=== PATIENT | female | born 1940 | race Caucasian/White ===

== ENCOUNTER 2024-12-27 09:22 | Emergency (ER) | payer MEDICARE, MEDICAID, SELFPAY ==
--- NOTE | 2024-12-27 09:41 | XR_ITS ---
Examination: Knee, right , 3 views Technique: Knee AP, lateral, oblique 3 views Date and time of exam: December 27, 2024 0959 hours INDICATIONS: Onset knee tenderness today FINDINGS: Prominent osteopenia Advanced narrowing osteoarthritis medial patellofemoral joints No fracture Small knee effusion IMPRESSION: No fracture
--- NOTE | 2024-12-27 09:41 | EKG_ITS ---
[facility] Test Date: 2024-12-27 Pat Name: ELSY GARG Department: Room: - Gender: Female Skiff Operator: : 1940 Requested By: Stanley Zheng Order Number: [id number] Reading MD: Stanley Zheng Measurements Intervals [place] Rate: 99 P: 5 FL: 183 QRS: 137 QRSD: 105 T: -23 QT: 346 QTc: 445 Interpretive Statements SINUS RHYTHM LEFT ATRIAL ENLARGEMENT [-0.15mV P WAVE IN V1/V2] INCOMPLETE RIGHT BUNDLE BRANCH BLOCK [90+ ms QRS DURATION, TERMINAL R IN V1/V2, 40+ ms S IN I/aVL/V4/V5/V6] POSSIBLE ANTERIOR MYOCARDIAL INFARCTION , OF INDETERMINATE AGE [30 ms Q WAVE IN V3/V4, OR R < 0.2 mV IN V4] No previous ECG available for comparison /[id number]/[email or web address]/[id number].pdf
--- NOTE | 2024-12-27 09:42 | PD.EDRME ---
Rapid Medical Screening Exam RME Arrival date/time: 12/27/24 09:22 84-year-old female presents to the emergency room with a chief complaint of right-sided knee pain and bilateral lower extremity swelling x 2 weeks I have greeted and performed a focused initial assessment of this patient. A comprehensive ED assessment and evaluation of the patient, analysis of all test results, and completion of the medical decision making process will be conducted by additional ED providers. Chief Complaint: Extremity Problem,Nontraumatic Time Seen by Provider: 12/27/24 09:38 Vital signs reviewed by provider: Yes
[2024-12-27 09:44] VITALS: BP 150/80; PULSE 101; RESP 16; TEMP 36.7; O2SAT 100; BMI 33.7
[2024-12-27 10:37] VITALS: BP 173/88; PULSE 98; RESP 17; TEMP 36.6; O2SAT 97
[2024-12-27 10:40] VITALS: PULSE 101
--- NOTE | 2024-12-27 10:45 | PC.NURSE ---
provided ama paper to sign pt stated she didn't want to stay but wasn't sure if she stay, explained consequences of leaving she was able to verbalize that the paper was to allow her to leave against medical advice, she stated she did not know the visit would entail all of this and advised her again that is up to her if she wants to stay as we cant keep her here against her will she is free to leave. pt stated she is uncomfortable in the bed and wants to sit in chair. provided pt a wheelchair to sit bed side and pt stated she will wait to see what the results show.
--- NOTE | 2024-12-27 10:47 | EDNOTE_ITS ---
ED Extremity Problem RME/HPI General Chief complaint: Extremity Problem,Nontraumatic Stated complaint: RIGHT KNEE/THIGH PAIN WITH BILAT FEET SWOLL X 2W Time Seen by Provider: 12/27/24 09:38 Arrival date/time: 12/27/24 09:22 RME / HPI RME / HPI Narrative: 12/27/24 09:22 84-year-old female presents to the emergency room with a chief complaint of right-sided knee pain and bilateral lower extremity swelling x 2 weeks I have greeted and performed a focused initial assessment of this patient. A comprehensive ED assessment and evaluation of the patient, analysis of all test results, and completion of the medical decision making process will be conducted by additional ED providers. This section includes all my notes and documentations, including HPI, PE, and ED course.? Guy Negrete MD HPI: 84 year old female presents to the ED for evaluation of right leg pain today. Reports pain to the right leg is located mostly in the knee, beginning intermittently 3 weeks ago. Described as aching and rated as moderate in sensation. Accompanied by difficulty standing and walking secondary to pain. Per [id number], the patient at baseline is able to get around with her walker without problems. Denies any trauma or injuries. Denies any history of similar pain, fevers, chest pain, cough, shortness of breath, or foot pain. No other complaints. ROS: All negative except as documented in HPI. Physical Exam: General:? Alert and oriented.? No acute distress when remaining still.?? Eyes:? Conjunctivae and lids clear.? ENT:? No nasal congestion.? Neck:? Supple.? Heart:? RRR.? Lungs:? No respiratory distress.? Good air movement.? No rhonchi, wheezing, rales.?? Abdomen:? Soft and nontender.?? Legs:? No clubbing, cyanosis, edema.? Skin:? Warm and dry.?? Neuro:? Alert and oriented X 3.?? Musculoskeletal: All major joints and bones are not tender with no limited range of motion. I reviewed all diagnostic test results. My interpretation of the EKG is?Sinus rhythm (99 bpm) with nonspecific ST-T changes. My interpretation of the knee x-ray is no fracture. Blood tests and urine tests?unremarkable except UTI. At this point, diagnoses include?right leg pain, UTI. Treatment here included?Macrobid and two Tylenol #3. Significant improvement noted. Recommended more diagnostic tests, including right leg ultrasound to rule out DVT. Patient declined. Requested going home. Doesn't want to wait longer. Discussed potential risks, including sudden . We still couldn't change her mind. Based on my best medical judgment, made decision no further evaluation or treatment indicated at this time.? Patient understands and agrees to the discharge instructions customized and printed, see below. Discharge Instructions from Dr. Negrete printed for you: 1. After evaluation, you are diagnosed with UTI. But the cause of your right leg pain was not determined. 2. Since you declined further diagnostic tests (including ultrasound of the right leg to make sure you don't have blood clots) and you decided to leave [facility], you are being discharged as you requested. 3. Take Macrobid for your UTI. For good hydration, increase oral fluid and maintain clear urine. If dark or yellow, increase oral fluid. 4. Tylenol with codeine for severe pain 5. See a private doctor on 12/28/2024 for recheck and further care. Ask to review all test results and official radiology reports, to make sure you receive all necessary follow-ups and monitoring. Ask to help you find the cause and treatment of your leg pain. 6. Seek immediate medical care with any concerns. Guy Negrete MD Related Data Previous Rx's ?Medication ?Instructions ?Recorded acetaminophen 300 mg-codeine 30 mg 2 tab PO TID PRN pa in #20 tabs 12/27/24 tablet nitrofurantoin 100 mg PO BID 7 days #14 cap s 12/27/24 monohydrate/macrocrystals 100 mg capsule (Macrobid) Allergies Allergy/AdvReac Type Severity Reaction Status Date / Time NKA* Allergy Uncoded 12/27/24 09:25 Review of Systems Review of Systems Systems Reviewed: All systems reviewed, normal except as documented Past Medical History Past Medical History NEUROLOGIC: Positive Neurological Disorders and Migraine CARDIAC: Positive Cardiac Disorders and Hypertension GASTROINTESTINAL: Positive Gastrointestinal Disorders and Obesity REPRODUCTIVE: Positive Previous Pregnancies (1) ENT: Positive History of ENT Problems, Cataracts (born with cataracts) and Blind (legally blind) PSYCHO/SOCIAL: Positive Depression and Anxiety OTHER HISTORY: Positive Chicken Pox (shingles) Social History SMOKING STATUS: Never smoker ED Exam Narrative Physical exam: As noted in HPI Course Quality Measures none Orders Category Date Time Status EKG (ED ONLY) *Do not use* NOW Care 12/27/24 09:41 Completed EKG (ED Only) Stat Exams 12/27/24 09:41 Draft US venous doppler LE RT Stat Exams 12/27/24 12:27 Ordered XR knee RT 3V Stat Exams 12/27/24 09:41 Completed B-Type Natriuretic Peptide Stat Lab 12/27/24 10:36 Completed CBC Stat Lab 12/27/24 10:36 Completed CRP [C-Reactive Protein] Stat Lab 12/27/24 10:36 Completed Comprehensive Metabolic Panel Stat Lab 12/27/24 10:36 Completed Magnesium Stat Lab 12/27/24 10:36 Completed Magnesium Stat Lab 12/27/24 10:36 Completed Partial Thromboplastin Time Stat Lab 12/27/24 10:36 Completed Procalcitonin Stat Lab 12/27/24 10:36 Completed Prothrombin Time with INR Stat Lab 12/27/24 10:36 Completed Sed Rate (ESR) Stat Lab 12/27/24 10:36 Completed Troponin I Stat Lab 12/27/24 10:36 Completed Uric Acid Stat Lab 12/27/24 10:36 Completed Urinalysis Stat Lab 12/27/24 11:20 Completed ACETAMINOPHEN w/COD 300-30 [Tylenol w/Cod #3] Med 12/27/24 11:04 Discontinued 2 tab PO X1 ONE Nitrofurantoin Macro [Macrobid] Med 12/27/24 12:27 Discontinued 100 mg PO X1 ONE Vital Signs Vital signs: Vital Signs Temperature 98.0 F 12/27/24 09:44 Pulse Rate 101 H 12/27/24 09:44 Respiratory Rate 16 12/27/24 09:44 Blood Pressure 150/80 H 12/27/24 09:44 Pulse Oximetry (%) 100 12/27/24 09:44 Oxygen Delivery Method Room Air 12/27/24 09:44 Pulse ox is 100% on room air which is adequate. Extremity Problem MDM Narrative MDM Narrative:: Kailyn Hope am scribing for and in the presence of Dr. Negrete. Patient data External records reviewed:: [facility] previous records (Per EMR, no previous visits for review ) Clinical information provided by:: patient and family ([id number] ) Social determinants that could affect healthcare access:: none Patient has the following chronic illnesses:: Hypertension How is presenting disease/condition affected by chronic disease/condition?: exacerbated by Evaluation data The following diagnostics were reviewed and interpreted by me:: lab results, radiology exam(s) and EKG tracing(s) (My interpretation of the EKG is: Sinus rhythm (99 bpm) with nonspecific ST-T changes. Guy Negrete MD) Lab and/or radiology exams considered but not ordered:: None Interpretation Summary: Normal diagnostics except UTI Medications / Prescriptions Medications or Prescriptions considered but not ordered:: None Medication administrations:: Medication Administration History Discontinued Medications Acetaminophen/Codeine Phosphate (Acetaminophen W/Cod 300-30 Tablet) 2 tab PO X1 ONE Stop: 12/27/24 11:05 Last Admin: 12/27/24 11:18 Dose: 2 tab Documented By: BD Nitrofurantoin Macrocrystals (Nitrofurantoin Macro 100 Mg Capsule) 100 mg PO X1 ONE Stop: 12/27/24 12:28 Last Admin: 12/27/24 13:07 Dose: 100 mg Documented By: BD Patient given tylenol with codeine and Macrobid Consultations Consultation(s) initiated? (list below): No Diagnosis Extremity Problem Differential Diagnosis: gout, cellulitis, superficial thrombophlebitis, lower extremity edema and deep vein thrombosis of lower extremity Most likely diagnosis given after review of the tests above:: Right leg pain UTI Admission Indicated Admission indicated?: not indicated Explain why admission is indicated or not indicated:: Patient left AMA Admission Request Was there a request for admission?: No Disposition Plan Disposition Plan: Discharge Discharge Attestation Discharge Attestation: The patient and all family members were given an opportunity to ask questions an d understood the discharge instructions. Discharge instructions specifically effects, indications for sooner follow up or return to the emergency department, and the expected course of current diagnosis. Patient condition: Stable Discharge Plan Plan Patient Disposition: HOME (Self Care) Prescriptions/Referrals Prescriptions/Med Rec: New acetaminophen-codeine 300-30 mg tablet 2 tab PO TID MDD 6 PRN (Reason: pain) Qty: 20 0RF nitrofurantoin monohyd/m-cryst [Macrobid] 100 mg capsule 100 mg PO BID 7 Days Qty: 14 0RF Rx Instructions: must administer with a meal/food Referrals: Manpreet London MD [Primary Care Provider] - In 1 week Problem List Clinical Impression: Right leg pain, UTI (urinary tract infection) Patient/Caregiver Discharge Instructions Discharge Activity: activity as tolerated Education Materials: ED Pain, Acute, Uncertain Cause Additional Instructions: Discharge Instructions from Dr. Negrete printed for you: 1. After evaluation, you are diagnosed with UTI. But the cause of your right leg pain was not determined. 2. Since you declined further diagnostic tests (including ultrasound of the right leg to make sure you don't have blood clots) and you decided to leave AGAINST MEDICAL ADVICE, you are being discharged as you requested. 3. Take Macrobid for your UTI. For good hydration, increase oral fluid and maintain clear urine. If dark or yellow, increase oral fluid. 4. Tylenol with codeine for severe pain 5. See a private doctor on 12/28/2024 for recheck and further care. Ask to review all test results and official radiology reports, to make sure you receive all necessary follow-ups and monitoring. Ask to help you find the cause and treatment of your leg pain. 6. Seek immediate medical care with any concerns. Print Language: Burundian Stand Alone Forms: [employer] Award Info., Patient Portal Info Letter
--- NOTE | 2024-12-27 10:47 | PC.NURSE ---
pt bib by sister in law for leg pain 2-3 months has gotten worse the past 3 days, more pain in the right knee bilateral swelling to lower extremities.
[2024-12-27 10:50] LABS: Basophils # (Auto) 0.1 Thou/mm3 (0.0-0.2); Basophils % (Auto) 1 % (0-2.5); Eosinophils % (Auto) 0 % (0-10); Hemoglobin 14.3 g/dL (12.0-16.0); Immature Granulocytes % (Auto) 0 % (0-0); Immature Granulocytes Auto 0.02 Thou/mm3 (0.00-0.00); Lymphocytes # (Auto) 1.4 Thou/mm3 (1.0-4.8); Lymphocytes % (Auto) 19 % (10-50); Mean Corpuscular HGB Conc 33.3 g/dl (31.0-37.0); Mean Corpuscular Hemoglobin 30.8 pg (25.0-35.0); Mean Corpuscular Volume 93 fL (80-100); Monocytes # (Auto) 0.7 Thou/mm3 (0.0-0.8); Monocytes % (Auto) 10 % (0-12); Neutrophils # (Auto) 4.9 Thou/mm3 (1.8-7.7); Neutrophils % (Auto) 70 % (37-80); Nucleated Red Blood Cell % 0 /100 WBC (0); Platelet Count 290 Thou/mm3 (140-440); RDW Standard Deviation 44.3 fL (36.4-46.3); Red Blood Count 4.64 Miln/mm3 (4.00-5.20)
--- NOTE | 2024-12-27 10:50 | PC.NURSE ---
pt state she is not wanting to stay and wish she never came to the hospital she does not want to stay,
[2024-12-27 11:04] LABS: B-Type Natriuretic Peptide 32 pg/mL (0-100)
[2024-12-27 11:05] LABS: Alanine Aminotransferase 10 U/L (10-49); Albumin, Serum 4.9 gm/dL (3.4-4.8); Albumin/Globulin Ratio 1.9 (1.2-2.2); Alkaline Phosphatase 140 U/L (46-116); Anion Gap 9 (7-16); Aspartate Amino Transferase 26 U/L (0-34); BUN/Creatinine Ratio 18 Ratio (12-20); Bilirubin,Total 0.6 mg/dL (0.3-1.2); Blood Urea Nitrogen 16 mg/dL (9-23); Calcium 10.3 mg/dL (8.3-10.6); Calcium (Corrected) 10.3 mg/dL (8.5-10.1); Carbon Dioxide 23.1 mMol/L (20.0-31.0); Chloride 104 mMol/L (98-107); Creatinine (Component) 0.9 mg/dL (0.6-1.3); Estimated Creatinine Clearance 50.4 mL/min (>60); Globulin 2.6 gm/dL (2.3-3.5); Glucose 109 mg/dL (74-106); Magnesium 1.9 mg/dL (1.6-2.6); Osmolality,Calculated 274 (275-295); Potassium 4.1 mMol/L (3.4-5.1); Sodium 136 mMol/L (136-145); Total Protein 7.5 gm/dL (5.7-8.2); Troponin I < 0.020 ng/mL (0.0-0.045); eGFR > 60 See Note
[2024-12-27 11:06] LABS: Partial Thromboplastin Time 35.8 Seconds (22.0-36.0); Prothrombin Time 11.3 Seconds (9.0-12.2)
--- NOTE | 2024-12-27 11:08 | PC.NURSE ---
notified that patient is going to stay at the moment and is setting bedside as pt was provided ama papers but declined at this time.
[2024-12-27] MEDS: ACETAMINOPHEN w/COD 300-30 TABLET 2 TAB PO (11:18)
[2024-12-27 11:43] LABS: Collection Type, Urine Clean Catch
[2024-12-27 11:55] LABS: Bacteria,Urine Rare; Bilirubin,Urine Negative (Negative); Blood,Urine Negative (Negative); Clarity,Urine Clear (Clear/Hazy); Color,Urine Lt-Yellow (Lt Yel-Yel); Glucose, Urine Negative (Negative); Hyaline Casts,Urine < 1 /hpf (0-1); Ketones,Urine Trace (Negative); Leukocyte Esterase,Urine Positive (Negative); Nitrite,Urine Negative (Negative); PH,Urine 6.5 (5.0-7.0); Protein,Urine Trace (Neg - Trace); RBC,Urine 4 /hpf (0-3); Specific Gravity,Urine 1.011 (1.001-1.035); Squamous Epithelial Cell,Urine 7 /hpf (0-5); Urobilinogen,Urine Negative mg/dL (0.0-1.0); WBC,Urine 30 /hpf (0-5)
[2024-12-27 12:08] VITALS: BP 155/100; PULSE 106; RESP 17; TEMP 36.6; O2SAT 95
[2024-12-27 12:15] LABS: Sed Rate (ESR) 22 mm/hr (0-30)
--- NOTE | 2024-12-27 12:20 | PC.NURSE ---
did not do in and out cath pt used bedside commode.
[2024-12-27 12:21] LABS: C-Reactive Protein < 0.4 mg/dL (0.0-0.9); Magnesium 1.9 mg/dL (1.6-2.6); Procalcitonin 0.04 ng/ml (0.0-0.49)
[2024-12-27 12:43] VITALS: BP 135/93; PULSE 110; RESP 17; TEMP 36.3; O2SAT 99
[2024-12-27] MEDS: NITROFURANTOIN MACRO 100 MG CAPSULE PO (13:07)
== END 2024-12-27 13:14 | disposition left against medical advice (07) ==
PROVIDERS: Nurse Practitioner Family; Emergency Provider Emergency Medicine; PCP Family Medicine
DX: M25.561 Pain in right knee (principal); N39.0 Urinary tract infection, site not specified; I10 Essential (primary) hypertension; Z53.29 Procedure and treatment not carried out because of patient's decision for other reasons
CPT/HCPCS: 36415; 73562; 80053; 81001; 83735; 83880; 84145; 84484; 84550; 85025; 85610; 85652; 85730; 86140; 93005; 99283; A9270

== ENCOUNTER → 2025-01-01 | Outpatient (CLI) | payer MEDICARE, MEDICAID, SELFPAY ==
--- NOTE | 2025-01-01 10:05 | XR_ITS ---
Examination: Venous duplex lower extremity sonogram, bilateral. Date and time of exam: January 01, 2025 at 11:20 AM INDICATIONS: Bilateral leg pain beginning 4 months ago Technique: Multiple sonographic images of the deep venous system have been obtained. B-mode/2-D grayscale imaging of vascular structures and Doppler spectral analysis (waveforms) and color performed Both legs are examined. Findings: Deep venous systems do not demonstrate abnormal echogenicity. All visualized deep veins exhibit compressibility. All visualized deep veins exhibit augmentation. Impression: Negative for deep vein thrombosis
== END | disposition home or self-care (01) ==
LOC: CDIM 09:57
PROVIDERS: PCP Family Medicine; Referring Provider Physician Assistant; Visit Provider Physician Assistant
DX: M79.661 Pain in right lower leg (principal); M79.662 Pain in left lower leg
CPT/HCPCS: 93970

== ENCOUNTER → 2025-04-24 | Outpatient (CLI) | payer MEDICARE, MEDICAID, SELFPAY ==
--- NOTE | 2025-04-24 | XR_ITS ---
Examination: Left knee 2 views TECHNIQUE: AP lateral left knee 2 views Date and time: April 16, 2025 12 0 2:00 PM INDICATIONS: Left knee pain beginning one year ago. FINDINGS: Prominent osteopenia Moderate to advanced tricompartment osteoarthritis, most severe patellofemoral joint. Small knee effusion No fracture IMPRESSION: Moderate to advanced tricompartment osteoarthritis, most severe patellofemoral joint
== END | disposition home or self-care (01) ==
LOC: CDIM 11:02
PROVIDERS: PCP Family Medicine; Referring Provider Family Medicine; Visit Provider Family Medicine
DX: M17.12 Unilateral primary osteoarthritis, left knee (principal)
CPT/HCPCS: 73560

== ENCOUNTER → 2025-05-08 | Outpatient (CLI) | payer MEDICARE, MEDICAID, SELFPAY ==
--- NOTE | 2025-05-08 13:00 | XR_ITS ---
Examination: Steroid injection right knee joint with imaging guidance Fluoroscopy AP right knee single view. Exam date and time: May 08, 2025 1319 hours INDICATIONS: Knee pain and swelling this week Informed consent provided. Technique: A timeout was completed verifying correct patient, procedure, site, positioning. The patient was placed in supine position appropriate for the steroid injection The patient's site was prepped and draped in sterile fashion 5 cc 1% lidocaine administered locally for anesthesia. Sterile drape applied, maximum barrier sterile technique. Utilizing fluoroscopic guidance, 23-gauge needle placed in the right knee joint 1 cc Kenalog 40 introduced into the knee joint The patient was in satisfactory and stable condition on completion of the procedure Attending radiologist was present for the entire procedure Estimated blood loss 0 cc. Impression: Successful steroid injection right knee joint with imaging guidance Fluoroscopy 0.1 minute radiation dose 0.44 milligray 1 spot fluoroscopic knee film .
== END | disposition home or self-care (01) ==
PROVIDERS: PCP Family Medicine; Referring Provider Family Medicine; Visit Provider Family Medicine
DX: M17.0 Bilateral primary osteoarthritis of knee (principal)
CPT/HCPCS: 20610; 77002

== ENCOUNTER → 2025-08-14 | Outpatient (CLI) | payer MEDICARE, MEDICAID, SELFPAY ==
--- NOTE | 2025-08-14 09:39 | XR_ITS ---
Examination: CT brain head without contrast. 2-D sagittal coronal reconstructions Date and time of exam:August 14, 2025 1040 hours INDICATIONS: History CVA, residual hemiparesis CTDI: vol (mGy):49.5 DLP: (mGycm):997 Technique: Multiple CT axial sections of the brain have been obtained, 5 mm slice thickness. Contrast has not been administered. 2-D sagittal, coronal reconstructions have been obtained Low dose protocols were performed. One or more of the following dose reduction techniques were used; automated exposure control, adjustment of the mA and/or KV according to patient size, use of iterative reconstruction technique. Findings: No significant ventricular enlargement. Intra-axial or extra-axial hemorrhage density is not seen. No mass effect or midline shift Basal cisterns are not remarkable. Fourth ventricle is midline. Cranial vault intact. Impression: Negative for acute hemorrhage, mass effect or midline shift As clinically warranted, consider brain MRI follow-up, stroke protocol
--- NOTE | 2025-08-14 09:51 | XR_ITS ---
Examination: CTA brain, head with intravenous contrast. 2-D sagittal, coronal reconstructions. 3-D reconstructions. Exam date and time: August 14, 2025 10:50 AM INDICATIONS: History cerebral infarction with residual hemiparesis CTDI: vol (mGy) 18 DLP: (mGycm) 341 Technique: Multiple CTA axial brain, head carotid images post intravenous contrast injection 75 cc, Isovue-370. 2-D sagittal, coronal reconstructions. 3-D reconstructions, 3-D post processing including vascular maximum intensity projection images. Low dose protocols were performed. One or more of the following dose reduction techniques were used; automated exposure control, adjustment of the mA and/or KV according to patient size, use of iterative reconstruction technique. Findings: Intracranial vertebral arteries basilar artery posterior cerebral branches fill with no large vessel occlusions Juxtasellar supraclinoid portions internal carotid arteries M1 segments middle cerebral arteries middle cerebral artery trifurcation vessels and anterior cerebral arteries fill with no large vessel occlusions IMPRESSION: No cerebral large vessel arterial occlusions
== END | disposition home or self-care (01) ==
LOC: CCTX 09:16
PROVIDERS: Referring Provider Family Medicine; Visit Provider Family Medicine
DX: I69.359 Hemiplegia and hemiparesis following cerebral infarction affecting unspecified side (principal); R29.818 Other symptoms and signs involving the nervous system
CPT/HCPCS: 70450; 70496; A4649; Q9967

== ENCOUNTER 2025-11-03 22:11 | Inpatient (IN) | payer MEDICARE, MEDICAID, SELFPAY ==
[2025-11-03 22:14] VITALS: BP 88/55; PULSE 41; RESP 17; TEMP 36.4; O2SAT 98
[2025-11-03 22:22] VITALS: PULSE 89; RESP 16; O2SAT 98
[2025-11-03 23:18] VITALS: BP 89/72; PULSE 88; RESP 19; O2SAT 98; BMI 26.6
--- NOTE | 2025-11-03 23:20 | EDNOTE_ITS ---
ED Abdominal Pain RME/HPI General Chief Complaint: Abdominal Pain Stated complaint: WEAKNESS Arrival date/time: 11/03/25 22:11 RME / HPI RME / HPI narrative: Dr. Monae?s Main ED Evaluation: 85yo female with a history of HTN, advanced arthritis with kyphoscoliosis requiring assist for transfer presents to the ED via EMS for generalized weakness in the setting of occasional explosive diarrhea x 3-4 days. No fever, chills, URI, cough, or dysuria. PSH noncontributory. Social history is unremarkable. NKA. Related Data Previous Rx's ?Medication ?Instructions ?Recorded acetaminophen 300 mg-codeine 30 mg 2 tab PO TID PRN pa in #20 tabs 12/27/24 tablet Allergies Allergy/AdvReac Type Severity Reaction Status Date / Time NKA* Allergy Uncoded 11/03/25 22:21 Review of Systems Review of Systems Systems Reviewed: All systems reviewed, normal except as documented ED Exam Narrative Physical exam: GENERAL APPEARANCE: alert and oriented x 4, chronically-ill appearing, debilitated, does not have any specific complaints, no acute distress VITALS: All vitals were reviewed and the pulse ox is 98% on room air, which is normal according to my interpretation. HEENT: Normocephalic, atraumatic; pupils equal, round, reactive to light; EOMI; mucous membranes pink, moist; oropharynx clear NECK: Supple LUNGS: CTABL; no wheezes, no rales, no rhonchi HEART: Regular rate, regular rhythm; normal S1, S2; no murmurs ABDOMEN: non distended; soft, minimal tenderness, BACK: no CVA tenderness EXTREMITIES: atraumatic; no edema NEUROLOGIC: awake; alert and oriented x4; cranial nerves II-XII grossly intact; no focal sensory or motor deficits PSYCHIATRIC: appropriate mood and affect SKIN: warm, dry, normal color; no rashes Course Quality Measures none Orders Category Date Time Status IV [Insert IV] NOW Care 11/03/25 23:[address] abdomen pelvis wo con Stat Exams 11/04/25 02:13 Taken XR chest 1V portable Stat Exams 11/03/25 23:30 Taken Blood Culture (Lab) Stat Lab 11/03/25 23:25 Received CBC [CBC] Stat Lab 11/03/25 23:20 Completed CMP [Comprehensive Metabolic Panel] Stat Lab 11/03/25 23:20 Completed Calprotectin, Stool* Stat Lab 11/03/25 Ordered Clostridium Difficile PCR Stat Lab 11/03/25 Ordered Lactate (Lactic Acid) Stat Lab 11/03/25 23:20 Completed Norovirus, EIA (Stool)* Stat Lab 11/03/25 Ordered Stool for WBCs Stat Lab 11/03/25 23:29 Ordered Urinalysis, C/S if Indicated Stat Lab 11/03/25 23:20 Completed Sodium Chloride 0.9% 1000 ml [Ns] 1,000 ml Med 11/03/25 23:25 Discontinued IV 999 mls/hr Sodium Chloride 0.9% 1000 ml [Ns] 1,000 ml Med 11/04/25 02:40 Discontinued IV 999 mls/hr cefTRIAXone/D5w 1gm IV premix [Rocephin/D5w 1gm IV Med 11/04/25 02:11 Discontinued premix] 1 gm in 50 ml IV X1 metroNIDAZOLE/NS 500 MG IVPB [Flagyl 500 mg IV] Med 11/04/25 02:13 Discontinued 500 mg in 100 ml IV X1 Vital Signs Vital signs: Vital Signs Temperature 97.5 F 11/03/25 22:14 Pulse Rate 41 L 11/03/25 22:14 Respiratory Rate 17 11/03/25 22:14 Blood Pressure 88/55 L 11/03/25 22:14 Pulse Oximetry (%) 98 11/03/25 22:14 Oxygen Delivery Method Room Air 11/03/25 22:14 Abdominal Pain MDM MDM Narrative MDM Narrative:: Scribe Attestation: 11/03/25 - Dionna Hope am scribing for and in the presence of Dr. Monae. 85yo female with a history of HTN, advanced arthritis with kyphoscoliosis requiring assist for transfer presents to the ED via EMS for generalized weakness in the setting of occasional explosive diarrhea x 3-4 days. No fever, chills, URI, cough, or dysuria. Please see PE findings. Lab markers demonstrated elevated WBC count 12.2, normal Hgb and Plt counts. Chemistries demonstrated elevated Na and reduced CO2 of 18.4. Creatinine at 2.9, which represents a significant decline in renal function within the last year. UA without signs of infection. Patient placed on quality assurance monitor chassis and aggressively hydrated to correct volume deficit. Attempts will be made for stool collection for analysis. CXR demonstrates a hiatal hernia, chronic changes without definite infiltrate or effusion. Patient hydrated with fluids with minimal response and dual IV empiric antibiotics administered. CT abdomen pelvis demonstrates colitis at the splenic flexure and descending colon and noted constipation. Hospitalist consulted for consideration of admission. Dx: colitis, constipation, sepsis Patient data External records reviewed:: [facility] previous records (Per chart review, patient has no relevant previous ED visits.) and EMS form Clinical information provided by:: patient Social determinants that could affect healthcare access:: none Patient has the following chronic illnesses:: HTN How is presenting disease/condition affected by chronic disease/condition?: uneffected by Evaluation data The following diagnostics were reviewed and interpreted by me:: lab results, radiology exam(s) and EKG tracing(s) Lab and/or radiology exams considered but not ordered:: none Interpretation Summary: CXR shows a large hiatal hernia obscuring the cardiac silhouette, ?right middle lobe infiltrate, no pleural effusion, no pneumothorax, according to my interpretation. Telerad Preliminary Report Draft Patient: ELSY GARG [facility]. Record#: [id number] Birthdate: 1940 Age/Sex: 85 / F Location: [facility] Attending Dr: Ordering Physician: Date of Service: Procedure(s): Accession Number(s): cc: ~ CT scan of the abdomen and pelvis without intravenous contrast (axial sections with sagittal and coronal reformats) November 04, 2025 0349 hours Clinical History: r/o colitis Comparison: No prior study is available for comparison. Findings: There are trace bilateral pleural effusions with underlying atelectasis. There are calcific densities in bilateral lower lobes. A moderate-sized hiatal hernia is present. Calcific densities are noted in the liver and spleen, likely representing old calcified granulomas. The gallbladder, pancreas, kidneys and adrenals are unremarkable on this noncontrast study. No evidence of bowel obstruction. The appendix is not definitively visualized; however, there is no evidence of inflammatory process in the right lower quadrant to suggest appendicitis. A moderate amount of fecal material is present in the colon. There is mild thickening of the splenic flexure and descending colon with associated fat stranding There is no mesenteric or retroperitoneal adenopathy. The urinary bladder is unremarkable. The uterus and adnexa are unremarkable. There is no free fluid or free air. The aorta and its branches demonstrate atheromatous calcification without evidence of aneurysm. Degenerative changes are identified in the spine. Impression: Findings consistent with colitis as described. Moderate constipation. Moderate-sized hiatal hernia. Other findings as described above. Report Electronically Signed By: Monica Dailey 11/04/2025 4:49:50 AM [EST Medications / Prescriptions Medications or Prescriptions considered but not ordered:: none Medication administrations:: Medication Administration History Discontinued Medications Sodium Chloride (Ns) 1,000 mls @ 999 mls/hr IV .Q1H1M ONE Stop: 11/04/25 00:25 Last Infusion: 11/04/25 01:05 Dose: Infused Documented By: Admin: 11/04/25 00:10 Dose: 999 mls/hr Documented By: BD Ceftriaxone Sodium/Dextrose (Rocephin/D5w 1gm Iv Premix) 1 gm in 50 mls @ 100 mls/hr IV X1 ONE Stop: 11/04/25 02:40 Last Infusion: 11/04/25 03:10 Dose: Infused Documented By: Admin: 11/04/25 02:33 Dose: 100 mls/hr Documented By: TACOS Metronidazole (Flagyl 500 Mg Iv) 500 mg in 100 mls @ 100 mls/hr IV X1 ONE Stop: 11/04/25 03:12 Last Infusion: 11/04/25 03:47 Dose: Infused Documented By: Admin: 11/04/25 02:47 Dose: 100 mls/hr Documented By: TACOS Sodium Chloride (Ns) 1,000 mls @ 999 mls/hr IV .Q1H1M ONE Stop: 11/04/25 03:40 Last Infusion: 11/04/25 03:35 Dose: Infused Documented By: Admin: 11/04/25 03:09 Dose: 999 mls/hr Documented By: BD see above Consultations Consultation(s) initiated? (list below): Yes Consultation #1 (Physician, Specialty, Details): Discussed case with the resident physician, attending Dr. Segura from Hospitalist service regarding admission. Discussed patients ED course, exam findings, labs, and radiology results. The Hospitalist will evaluate the patient for admission. Time: 05:12 Diagnosis Differential diagnosis abdominal pain: constipation, diverticulitis and other (colitis, dehydration, electrolyte abnormality) Most likely diagnosis given after review of the tests above:: see clinical impression below Admission Indicated Admission indicated?: indicated Admission Request Was there a request for admission?: Yes Admission Attestation Admission request attestation: Discussed case with [] from Hospitalist service regarding admission. Discussed patients ED course, exam findings, labs, and radiology results. The Hospitalist [agrees,declines] to accept the patient for admission. Disposition Plan Disposition Plan: Admit Discharge Plan Plan Patient Disposition: Admit Acute Care w/in Hospital Prescriptions/Referrals Prescriptions/Med Rec: No Action acetaminophen-codeine 300-30 mg tablet 2 tab PO TID MDD 6 PRN (Reason: pain) Qty: 20 0RF Referrals: Manpreet London MD [Primary Care Provider, Family Practice] - In 1 week Problem List Clinical Impression: Sepsis, Colitis, Constipation Patient/Caregiver Discharge Instructions Print Language: Norwegian Stand Alone Forms: Mar[facility]ell Award Info., Patient Portal Info Letter
--- NOTE | 2025-11-03 23:30 | XR_ITS ---
EXAMINATION: AP chest single view TECHNIQUE: AP portable semiupright chest single view INDICATIONS: Shortness of breath today FINDINGS: Large retrocardiac gastric hernia Mild heart failure Moderate enlargement left ventricle prominent vascular congestion and early septal edema at the lung bases No lobar pneumonia IMPRESSION: Mild heart failure
[2025-11-03 23:45] LABS: Basophils # (Auto) 0.0 Thou/mm3 (0.0-0.2); Basophils % (Auto) 0 % (0-2.5); Eosinophils # (Auto) 0.0 Thou/mm3 (0.0-0.5); Eosinophils % (Auto) 0 % (0-10); Hematocrit 39.0 % (36.0-46.0); Hemoglobin 13.2 g/dL (12.0-16.0); Immature Granulocytes Auto 0.07 Thou/mm3 (0.00-0.00); Lactate (Lactic Acid) 1.7 mMol/L (0.4-2.0); Lymphocytes # (Auto) 1.0 Thou/mm3 (1.0-4.8); Lymphocytes % (Auto) 8 % (10-50); Mean Corpuscular HGB Conc 33.8 g/dl (31.0-37.0); Mean Corpuscular Hemoglobin 30.8 pg (25.0-35.0); Mean Corpuscular Volume 91 fL (80-100); Monocytes # (Auto) 1.3 Thou/mm3 (0.0-0.8); Monocytes % (Auto) 11 % (0-12); Neutrophils # (Auto) 9.8 Thou/mm3 (1.8-7.7); Neutrophils % (Auto) 80 % (37-80); Nucleated Red Blood Cell # 0.00 Thou/mm3 (0.00-0.00); Nucleated Red Blood Cell % 0 /100 WBC (0); Platelet Count 286 Thou/mm3 (140-440); RDW Standard Deviation 45.0 fL (36.4-46.3); Red Blood Count 4.29 Miln/mm3 (4.00-5.20); White Blood Count 12.2 Thou/mm3 (3.6-11.0)
[2025-11-04] VITALS (9 sets, daily range): BP systolic 73–121; BP diastolic 58–74; PULSE 74–99; RESP 17–95; TEMP 36.4–37.7; O2SAT 93–97
[2025-11-04 00:05] LABS: Amorphous Crystals,Urine Present (Absent); Bilirubin,Urine Negative (Negative); Blood,Urine Negative (Negative); Clarity,Urine Turbid (Clear/Hazy); Collection Type, Urine Clean Catch; Color,Urine Yellow (Lt Yel-Yel); Culture Indicated,Urine Not Indicated; Glucose, Urine Negative (Negative); Granular Casts,Urine < 1 /hpf (0-1); Hyaline Casts,Urine 1 /hpf (0-1); Ketones,Urine Negative (Negative); Leukocyte Esterase,Urine Negative (Negative); Nitrite,Urine Negative (Negative); PH,Urine 5.0 (5.0-7.0); Protein,Urine 1+ (Neg - Trace); RBC,Urine 1 /hpf (0-3); Specific Gravity,Urine 1.020 (1.001-1.035); Squamous Epithelial Cell,Urine 2 /hpf (0-5); Urobilinogen,Urine 2.0 mg/dL (0.0-1.0); WBC,Urine 2 /hpf (0-5)
[2025-11-04] MEDS: SODIUM CHLORIDE 0.9% 1000 ML 1,000 ML 999 ML IV ×2 (00:10→03:09)
[2025-11-04 00:12] LABS: Alanine Aminotransferase 18 U/L (10-49); Albumin, Serum 4.1 gm/dL (3.4-4.8); Albumin/Globulin Ratio 1.5 (1.2-2.2); Alkaline Phosphatase 121 U/L (46-116); Anion Gap 15 (7-16); Aspartate Amino Transferase 56 U/L (0-34); BUN/Creatinine Ratio 13 Ratio (12-20); Bilirubin,Total 0.6 mg/dL (0.3-1.2); Blood Urea Nitrogen 38 mg/dL (9-23); Calcium 9.1 mg/dL (8.3-10.6); Calcium (Corrected) 9.1 mg/dL (8.5-10.1); Carbon Dioxide 18.4 mMol/L (20.0-31.0); Chloride 100 mMol/L (98-107); Creatinine (Component) 2.9 mg/dL (0.6-1.3); Estimated Creatinine Clearance 14.2 mL/min (>60); Globulin 2.7 gm/dL (2.3-3.5); Glucose 96 mg/dL (74-106); Osmolality,Calculated 275 (275-295); Potassium 4.3 mMol/L (3.4-5.1); Sodium 133 mMol/L (136-145); Total Protein 6.8 gm/dL (5.7-8.2); eGFR 15 See Note
--- NOTE | 2025-11-04 02:13 | XR_ITS ---
Examination: CT abdomen and pelvis without contrast. Coronal 3-D reconstructions. Sagittal 2-D reconstructions. Date and time of exam: November 04, 2025, 0349 hours INDICATIONS: Abdominal pain and weakness today, clinical diagnosis colitis CTDI: vol (mGy): 11.5 DLP: (mGycm): 600 Technique: Axial images of the abdomen have been obtained, 3 mm slice thickness Intravenous contrast material has not been administered. Low dose protocols were performed. One or more of the following dose reduction techniques were used; automated exposure control, adjustment of the mA and/or KV according to patient size, use of iterative reconstruction technique. Findings: Minimal pleural fluid Large retrocardiac gastric hernia Splenic calcifications and liver calcifications No definite gallstones No pancreatic mass Minimal dilatation of the renal calyces Aorta normal size Colon is air distended with diffuse wall thickening on this noncontrast study Intact urinary bladder Atrophic uterus Severe osteopenia IMPRESSION: Findings suspicious for diffuse nonspecific colitis on this limited noncontrast study
[2025-11-04] MEDS: cefTRIAXone/D5w 1gm IV premix 1 GM/50 ML BAG IV (02:33)
[2025-11-04] MEDS: metroNIDAZOLE/NS 500 MG IVPB 500 MG/100 ML BAG 100 MG IV (02:47)
--- NOTE | 2025-11-04 04:50 | PRELIM_ITS ---
CT scan of the abdomen and pelvis without intravenous contrast (axial sections with sagittal and coronal reformats) November 04, 2025 0349 hours Clinical History: r/o colitis Comparison: No prior study is available for comparison. Findings: There are trace bilateral pleural effusions with underlying atelectasis. There are calcific densities in bilateral lower lobes. A moderate-sized hiatal hernia is present. Calcific densities are noted in the liver and spleen, likely representing old calcified granulomas. The gallbladder, pancreas, kidneys and adrenals are unremarkable on this noncontrast study. No evidence of bowel obstruction. The appendix is not definitively visualized; however, there is no evidence of inflammatory process in the right lower quadrant to suggest appendicitis. A moderate amount of fecal material is present in the colon. There is mild thickening of the splenic flexure and descending colon with associated fat stranding There is no mesenteric or retroperitoneal adenopathy. The urinary bladder is unremarkable. The uterus and adnexa are unremarkable. There is no free fluid or free air. The aorta and its branches demonstrate atheromatous calcification without evidence of aneurysm. Degenerative changes are identified in the spine. Impression: Findings consistent with colitis as described. Moderate constipation. Moderate-sized hiatal hernia. Other findings as described above. Report Electronically Signed By: Monica Dailey 11/04/2025 4:49:50 AM [EST]
--- NOTE | 2025-11-04 05:47 | ESHP_ITS ---
<Statement entered by Haim Sharp MD - 11/04/25 06:31> I have personally seen and examined the patient, agree with residents assessment and plan Patient plan of care was discussed with the attending physician, Dr. Eliazar Sharp, PGY2 Documentation for date of: 11/04/25 [facility] History of Present Illness History of present illness: HPI: 85-year-old female with a past medical history of hypertension, advanced arthritis with kyphoscoliosis requiring assistance for transfer who presented to the ED late in the evening on 11/03/2025 with weakness and associated diarrhea for the past 3 to 4 days. Patient mentioned that she did not feel right earlier in the day and that she had difficulty walking. She denied losing consciousness. Patient is a poor historian. Most history was gathered from chart review. She was found to be hypotensive with a BP of 88/55 on arrival. She had a white count of 12.[address] showed evidence of colitis. Sepsis alert was called. Patient was admitted for sepsis secondary to suspected colitis. ED Course: * Significant vitals on arrival: BP 88/55, pulse 41. * Significant labs: WBC 12.2, sodium 133, bicarb 18.4, BUN 38, creatinine 2.9, AST 56, alk phos 121. Lactate 1.7. * Imaging: Chest x-ray pending official read. Abdominal CT showed trace bilateral pleural effusions with underlying atelectasis, moderate-sized hiatal hernia, no evidence of bowel obstruction, moderate amount of fecal material in the colon. * Urine: Turbid, 1+ protein, present amorphous crystals. * ED intervention: Patient received 2 L of NS fluid, 1 g dose of ceftriaxone and a 500 mg dose of metronidazole. History: (Mostly gathered from chart review) * Past medical history: As above in HPI * Surgical history: Patient denied any surgical history * Social history: Patient denied alcohol tobacco or drug use. Mentioned that she lives at home. Allergies: * No known drug allergies Home Medications: (Pending med rec, meds in position of patient at bedside) * Furosemide 20 mg daily. * Amlodipine 5 mg daily. * Benzepril 20 mg daily. * Bupropion 300 mg daily. * Simvastatin 10 mg nightly. * Esomeprazole 40 mg daily. CODE STATUS: DNR/DNI Review of Systems Review of Systems Narrative Review of Systems: Review of Systems: * General: Denies fevers, chills. * HEENT: Denies headache, congestion, or sore throat. * Cardiac: Denies chest pain or palpitations. * Pulmonary: Denies shortness of breath or cough. * GI: Denies nausea, vomiting. Admits to diarrhea of 3 to 4 days duration. * : Denies dysuria, hematuria, frequency, or urgency. * Neuro: Admits to weakness, not feeling right. Denied, numbness, vision changes, or speech difficulty. Exam Vital Signs Temp Pulse Resp BP Pulse Ox O2 Del Method 97.8 F 91 19 101/61 97 Room Air 11/04/25 05:17 11/04/25 05:17 11/04/25 05:17 11/04/25 05:17 11/04/25 05:17 11/04/25 05:17 Narrative Exam General: Frail elderly lady. Answering questions but is confused, unsure if she fastens her current situation, is asking to get up and leave. Neurologic: GCS 13: Opens eyes to verbal command (3), confused (4), following commands (6). Alert and oriented x3, no gross neurological deficit, and patient able to move all 4 extremities. HEENT: Normocephalic, atraumatic, mucous membranes moist. Pupils reactive to light. Heart: Tachycardic, grade 2 out of 6 systolic ejection murmur left sternal border. Lungs: Clear to auscultation bilaterally with no wheezing or crackles. Abdomen: Soft, nondistended, nontender, positive bowel sounds. No guarding or rebound tenderness. Extremities: Nonpitting edema in the lower extremities bilaterally. 2+ radial and dorsalis pedis pulses bilaterally. Skin: Warm. Dry. No rash or ecchymoses. Results: Labs 11/03/25 23:20 11/03/25 23:20 Labs: Short CBC 11/03/25 Range/Units 23:20 WBC 12.2 H (3.6-11.0) Thou/mm3 Hgb 13.2 (12.0-16.0) g/dL Hct 39.0 (36.0-46.0) % Plt Count 286 (140-440) Thou/mm3 BMP 11/03/25 23:20 Sodium 133 L Potassium 4.3 Chloride 100 Carbon Dioxide 18.4 L BUN 38 H Creatinine 2.9 H Glucose 96 Calcium 9.1 Liver Function 11/03/25 Range/Units 23:20 Total Bilirubin 0.6 (0.3-1.2) mg/dL AST 56 H (0-34) U/L ALT 18 (10-49) U/L Alkaline Phosphatase 121 H (46-116) U/L Albumin 4.1 (3.4-4.8) gm/dL Urine 11/03/25 Range/Units 23:20 Urine Color Yellow (Lt Yel-Yel) Urine Clarity Turbid A (Clear/Hazy) Urine pH 5.0 (5.0-7.0) Ur Specific [place] 1.020 (1.001-1.035) Urine Protein 1+ A (Neg - Trace) Urine Glucose (UA) Negative (Negative) Quality Measures Quality Measures VTE prophylaxis and none Advance care planning discussed with:: patient Medications Home Medications and Allergies Home Medications ?Medication ?Instructions ?Recorded ?Confirmed ?Type amlodipine 5 mg tablet 5 mg PO QDAY 11/04/25 History benazepril 20 mg tablet 20 mg PO QDAY 11/04/2511/04 History bupropion HCl 300 mg 24 hr tablet, 300 mg PO QDAY 07/2211/04/25 History extended release esomeprazole magnesium 40 mg 40 mg PO Q24H 11/04/25 History capsule,delayed release furosemide 20 mg tablet 20 mg PO QDAY 11/04/2511/04 History simvastatin 10 mg tablet 10 mg PO HS 11/04/25 5 History Allergies Allergy/AdvReac Type Severity Reaction Status Date / Time No Known Allergies Allergy Unverified 11/04/25 09:38 Visit Medications Acetaminophen (Acetaminophen 325 Mg Tablet) 650 mg PO Q6H PRN PRN Reason: Fever >100.4 Stop: 12/04/25 05:37 Sodium Chloride (Ns) 1,000 mls @ 75 mls/hr IV .[id number] ONE Stop: 11/04/25 18:59 Ciprofloxacin/Dextrose (Cipro Ivpb) 400 mg in 200 mls @ 200 mls/hr IV Q12HR DAVID Stop: 11/11/25 05:43 Metronidazole (Flagyl 500 Mg Iv) 500 mg in 100 mls @ 200 mls/hr IV Q8HR DAVID Stop: 11/11/25 10:59 Magnesium Hydroxide (Milk Of Magnesia Susp 30 Ml Udc) 30 ml PO QDAY ONE; Protocol Stop: 11/04/25 05:42 Discontinued Medications Sodium Chloride (Ns) 1,000 mls @ 999 mls/hr IV .Q1H1M ONE Stop: 11/04/25 00:25 Last Infusion: 11/04/25 01:05 Dose: Infused Ceftriaxone Sodium/Dextrose (Rocephin/D5w 1gm Iv Premix) 1 gm in 50 mls @ 100 mls/hr IV X1 ONE Stop: 11/04/25 02:40 Last Infusion: 11/04/25 03:10 Dose: Infused Metronidazole (Flagyl 500 Mg Iv) 500 mg in 100 mls @ 100 mls/hr IV X1 ONE Stop: 11/04/25 03:12 Last Infusion: 11/04/25 03:47 Dose: Infused Sodium Chloride (Ns) 1,000 mls @ 999 mls/hr IV .Q1H1M ONE Stop: 11/04/25 03:40 Last Infusion: 11/04/25 03:35 Dose: Infused Assessment & Plan Plan Summary: 85-year-old female with a past medical history of hypertension, advanced arthritis with kyphoscoliosis requiring assistance for transfer who presented to the ED late in the evening on 11/03/2025 with weakness and associated diarrhea for the past 3 to 4 days. Patient is a poor historian. She was found to be hypotensive with a BP of 88/55 on arrival. She had a white count of 12.[address] showed evidence of colitis. Sepsis alert was called. Patient was admitted for sepsis secondary to suspected colitis. #Sepsis secondary to #Colitis #Acute nonbloody diarrhea #Distributive shock (Resolved) #Leukocytosis #Hypotension * Patient presented with a 3 to 4-day history of explosive diarrhea * Was found to have a BP of 88/55, pulse of 41 * Patient met 1/4 SIRS criteria with a leukocytosis of 12.2, though the patient was hypotensive so sepsis alert was called * Patient improved after receiving 2 L normal saline in the ED, blood pressure improved to 117/58 * Abdominal CT showed trace bilateral pleural effusions with underlying atelectasis, moderate-sized hiatal hernia, no evidence of bowel obstruction, moderate amount of fecal material in the colon * Constipation may have led to colitis leading to septic picture presenting with hypotension and leukocytosis * Lactate was negative * Combination of acute diarrhea while taking antihypertensive medications may lead to hypotension Plan: * Ciprofloxacin 400 mg every 12 hours * Metronidazole 500 mL Leticia every 8 hours * LR maintenance at 75/h * Blood cultures ordered * Stool calprotectin ordered * C. difficile ordered * Stool norovirus ordered * Stool WBCs ordered #NEHEMIAH #Prerenal Azotemia * Patient presented with a BUN of 38 and creatinine of 2.9 * Patient had normal BUN and creatinine parameters about a year ago * In that amount of time, a new baseline creatinine may have been established * Patient would need 3 months of an elevated creatinine for her to be considered her baseline, therefore this is technically an NEHEMIAH * Increased creatinine may reflect acute volume loss due to diarrhea * Patient may be taking antihypertensives in the presence of acute nonbloody diarrhea, which may have led to NEHEMIAH Plan: * IV fluid resuscitation as above * Avoid nephrotoxic agents #Essential Hypertension * Per chart review of patient's history * Blood pressures have been soft Plan: * Pending med rec * Will hold antihypertensives in the presence of acute diarrhea as this may have led to hypotension #Advanced arthritis with kyphoscoliosis * Per chart review of patient's history Plan: * No direct intervention at this time #Hyperlipidemia? * Patient appears to be taking simvastatin at home, pill bottle present at bedside * No cholesterol panel upon chart review Plan: * Pending med rec * Consider ordering cholesterol panel and restarting home statin #Depression? * Patient appears to be taking bupropion 300 mg, pill bottle present at bedside Plan: * Pending med rec * Consider restarting home medications Hospital Maintenance: DVT ppx: SCDs Diet: Pending nurse swallow eval IV lines: Peripheral IVs Code status: DNR/DNI Dispo: Telemetry monitoring floor, fluid resuscitation and antibiotics for sepsis. Pending stool studies. Patient was seen and discussed with my attending physician Dr. Colton HERNANDEZ and my senior resident Dr. Aron HERNANDEZ PGY-2. Vern Sue DO PGY-1. Attending Provider Attestation/Addendum After examination of the patient and review of the clinical data I feel that this patient needs admission to the hospital for further treatment/evaluation. Plan of care discussed with patient and is in agreement. I Naveen Segura MD, attest that I was physically present for castrejon portions of evaluation, and examined patient, labs and imagings and plan of care were discussed with IM residents team, and I agree with the findings and plans documented above.
--- NOTE | 2025-11-04 06:21 | PC.NURSE ---
Patient is refusing any type of treatment at this time Dr. Segura is aware. Per Dr. Segura he is waiting for patients brother to speak to him about patients condition and treatment.
--- NOTE | 2025-11-04 08:06 | PC.NURSE ---
PT STILL NOT WANTING TO STAY- SPOKE WITH HER FOR A WHILE AND EXPLAINED WHAT SHE IS HERE FOR AND OUR GOAL IS TO GET HER BETTER. SHE IS UNABLE TO MOVE HER LEGS, I ADJUSTED HER IN BED AND GOT HER NEW BLANKETS, SPOKE WITH HER BROTHERS AT THE BEDSIDE. PT IS GCS OF 15, HOWEVER IS HAVING EPISODES OF CONFUSION AND SAYING THINGS THAT ARENT MAKING SENSE. BROTHERS ARE INSISTING ON PT STAYING AND WILL SIGN FOR HER, SON ON THE PHONE WILL ALSO SIGN FOR HER. I CALLED HOSPITALIST AND UPDATED HIM AND HE WILL TALK TO HIS ATTENDING ABOUT THE NEXT STEPS. DELAY OF MEDICATION IS DUE TO THESE THINGS.
[2025-11-04] MEDS: SODIUM CHLORIDE 0.9% 1000 ML 1,000 ML 75 ML IV (09:16)
[2025-11-04] MEDS: CIPROFLOXACIN/D5w 400 MG IVPB 400 MG/200 ML BAG 200 MG IV ×2 (09:16→20:24)
--- NOTE | 2025-11-04 09:20 | XR_ITS ---
Shoulder bilateral, 6 views Technique: Shoulder AP internal rotation, AP external rotation, Y view each shoulder total 6 views Exam date and time : November 04, 2025, 0928 hours INDICATIONS: Patient fell today with injury to both shoulders, bilateral shoulder pain. FINDINGS: Left shoulder calcific tendinitis No shoulder fractures or dislocations IMPRESSION: No shoulder fractures
[2025-11-04 09:47] LABS: Base Excess, Venous -5 (-3-3); O2 Saturation, Venous 93 % (96-97); PCO2, Venous 28 mmHg (36-56); PO2, Venous 57 mmHg (15-58); pH, Venous 7.42 (7.33-7.66)
--- NOTE | 2025-11-04 09:50 | PC.NURSE ---
PT REFUSING PO AND MO TYLENOL FOR FEVER, IV ORDERED PT REFUSING SWOLLOW EVAL WELL
--- NOTE | 2025-11-04 10:16 | ESPR_ITS ---
<Statement entered by Rashel Alexandre MD - 11/04/25 16:21> Overnight admission for colitis. Seen and examined at bedside and patient is alert and oriented x3 and expresses understanding as to why she has been admitted. Brothers present at bedside and helped provide history, stating she has been having multiple watery, nonbloody bowel movements per day for the last week or so. She has not taken any recent antibiotics or medications, denies fever, chills, or abdominal pain. Will continue with ciprofloxacin and flagyl for colitis and follow-up cultures and stool studies. ----- Note reviewed and agree with care plan as documented. Please refer to the note below for further details. Plan discussed with attending physician Dr. Bjorn Alexandre MD PGY-2 Internal Medicine Documentation for date of: 11/04/25 Subjective Subjective Interval history: Patient admitted overnight for sepsis 2/2 colitis. Seen and examined at bedside with brothers present. The patient is expressing reluctance to be hospitalized, repeatedly stating that her family might leave her here. She remained alert and oriented ?3 throughout the discussion. Patient's brothers assist with ADL's. According to her brother, she has experienced weakness and diarrhea for the past 3?5 days. She reports no fever, chills, sick contacts,travel or recent dietary exposures/changes . She also fell a few days ago while attempting to stand from the bathroom. She uses walker to ambulates. Patient denies chest pain, palpitations, or abdominal pain. She reports right shoulder pain with limited movement. Shoulder X-ray showed no fracture but revealed left shoulder calcific tendinitis. No new labs were obtained as the patient refused blood draws. Vitals are stable, and oxygen saturation is normal on room air. Exam Vital Signs Temp Pulse Resp BP Pulse Ox O2 Del Method 100 F 90 20 97/66 93 L Room Air 11/04/25 09:27 11/04/25 09:27 11/04/25 09:27 11/04/25 09:27 11/04/25 09:27 11/04/25 09:27 Narrative Exam General: Alert, no acute distress.Conversational and non-toxic appearing. Skin: Warm, dry, intact. No rash or ecchymoses. Head: Normocephalic, atraumatic. Eye: Normal conjunctiva, PERRL. Throat: Oral mucosa moist. No obvious lesions in oropharynx. Cardiovascular: Regular rate and rhythm, no murmur, +S1/S2. Respiratory: Lungs are clear to auscultation, respirations unlabored, no crackles, no wheezing. Gastrointestinal: Soft, nontender, non-distended. No guarding or rebound tenderness. Extremities: Right shoulder discomfort, limited movement. Left knee bruising. No edema, no cyanosis, no clubbing. Neuro: Alert and oriented x3.No focal deficits observed. Conversant, moving all extremities. No overt cerebellar signs/incoordination. Psychiatric: Cooperative, appropriate affect Objective Labs 11/03/25 23:20 11/03/25 23:20 Labs: Laboratory Results - last 24 hr 11/03/25 11/04/25 23:20 09:44 WBC 12.2 H RBC 4.29 Hgb 13.2 Hct 39.0 MCV 91 MCH 30.8 MCHC 33.8 RDW Std Deviation 45.0 Plt Count 286 Neut % (Auto) 80 Lymph % (Auto) 8 L [place] % (Auto) 11 Eos % (Auto) 0 Baso % (Auto) 0 Neut # (Auto) 9.8 H Lymph # (Auto) 1.0 [place] # (Auto) 1.3 H Eos # (Auto) 0.0 Baso # (Auto) 0.0 Immature Gran # (Auto) 0.07 H Absolute Nucleated RBC 0.00 Immature Gran % 1 H Nucleated RBC % 0 VBG pH 7.42 VBG pCO2 28 L VBG pO2 57 VBG O2 Sat (Olga) 93 L VBG Base Excess -5 L Sodium 133 L Potassium 4.3 Chloride 100 Carbon Dioxide 18.4 L Anion Gap 15 BUN 38 H Creatinine 2.9 H Estim Creat Clear Calc 14.2 L eGFR 15 L BUN/Creatinine Ratio 13 Glucose 96 Calculated Osmolality 275 Lactic Acid 1.7 Calcium 9.1 Corrected Calcium 9.1 Total Bilirubin 0.6 AST 56 H ALT 18 Alkaline Phosphatase 121 H Total Protein 6.8 Albumin 4.1 Globulin 2.7 Albumin/Globulin Ratio 1.5 Ur Collection Type Clean Catch Urine Color Yellow Urine Clarity Turbid A Urine pH 5.0 Ur Specific [place] 1.020 Urine Protein 1+ A Urine Glucose (UA) Negative Urine Ketones Negative Urine Blood Negative Urine Nitrite Negative Urine Bilirubin Negative Urine Urobilinogen (Auto) 2.0 Ur Leukocyte Esterase Negative Urine RBC 1 Urine WBC 2 Ur Squamous Epith Cells 2 Amorphous Crystals Present A Urine Bacteria None Hyaline Casts 1 Granular Casts < 1 Ur Culture Indicated? Not Indicated ABG Interpretation ABG results: 11/04/25 09:44 VBG pH 7.42 VBG pCO2 28 L VBG pO2 57 VBG Base Excess -5 L Quality Measures Quality Measures none Advance care planning discussed with:: patient and sibling (brothers) Assessment & Plan Assessment Current Active Medications: Generic Name Dose Route Start Last Admin Trade Name Freq PRN Reason Stop Dose Admin Acetaminophen 650 mg 11/04/25 05:38 Acetaminophen 325 Mg Tablet PO 12/04/25 05:37 On Hold: 11/04/25 09:38 Q6H PRN Comment: IV APAP ORDERED Fever >100.4 Sodium Chloride 1,000 mls @ 75 mls/hr 11/04/25 05:40 11/04/25 09:16 Ns IV 11/04/25 18:59 75 mls/hr .[id number] ONE Administration Ciprofloxacin/Dextrose 400 mg in 200 mls @ 200 mls/hr 11/04/25 05:44 11/04/25 09:16 Cipro Ivpb IV 11/11/25 05:43 200 mls/hr Q12HR DAVID Administration Metronidazole 500 mg in 100 mls @ 200 mls/hr 11/04/25 11:00 Flagyl 500 Mg Iv IV 11/11/25 10:59 Q8HR DAVID Acetaminophen 1,000 mg in 100 mls @ 250 mls/hr 11/04/25 09:36 Ofirmev Inj IV 11/05/25 06:23 Q6HR DAVID Plan 85-year-old female with a past medical history of hypertension, advanced arthritis with kyphoscoliosis requiring assistance for transfer who presented to the ED late in the evening on 11/03/2025 with weakness and associated diarrhea for the past 3 to 4 days. Patient is a poor historian. She was found to be hypotensive with a BP of 88/55 on arrival. She had a white count of 12.[address] showed evidence of colitis. Sepsis alert was called. Patient was admitted for sepsis secondary to suspected colitis. #Acute onset diarrhea #Distributive shock (Resolved) #Hypotension (resolve) #Leukocytosis Patient presented with a 3 to 4-day history of explosive diarrhea.Was found to have a BP of 88/55, pulse of 41. Patient met 1/4 SIRS criteria with a leukocytosis of 12.2, though the patient was hypotensive so sepsis alert was called. However pt doent meet the sepsis or qSOFA criteria . Patient improved after receiving 2 L normal saline in the ED, blood pressure improved to 117/58. Constipation may have led to colitis leading to septic picture presenting with hypotension and leukocytosis. Lactate was negative. Combination of acute diarrhea while taking antihypertensive medications may lead to hypotension -Abdominal CT showed trace bilateral pleural effusions with underlying atelectasis, moderate-sized hiatal hernia, no evidence of bowel obstruction, moderate amount of fecal material in the colon Plan: -Ciprofloxacin 400 mg every 12 hours ( 11/04- - Metronidazole 500 mL Leticia every 8 hours ( 11/04- - NS maintenance at 75/h - Blood cultures ordered,pending - Stool calprotectin, C. difficile, norovirus, WBCs , stool culture, pending #NEHEMIAH, likely Prerenal # Mild Hyponatremia Patient presented with a BUN of 38 and creatinine of 2.9. Patient had normal BUN and creatinine parameters about a year ago. In that amount of time, a new baseline creatinine may have been established. Increased creatinine may reflect acute volume loss due to diarrhea. Patient may be taking antihypertensives in the presence of acute nonbloody diarrhea, which may have led to NEHEMIAH. Hyponatremia in setting of diarrhea and dehydration. Plan: - IV fluid resuscitation as above - Avoid nephrotoxic agents #CT findings of moderate-sized hiatal hernia Home medication omeprazole 40 mg p.o. daily - Protonix 40 mg p.o. daily #Essential Hypertension -Per chart review of patient's history -Blood pressures have been soft. Home medication-amlodipine 5 mg p.o. Plan - Will hold antihypertensives in the presence of acute diarrhea as this may have led to hypotension #Left shoulder calcific tendinitis #Hx Advanced arthritis with kyphoscoliosis Patient fell with possible injury to both shoulders. On physical exam noted right shoulder discomfort, limited movement 11/04: bilateral shoulder x-ray showed left shoulder calcific tendinitis. No shoulder fractures or dislocations Plan - pain controlled #Hyperlipidemia Patient appears to be taking simvastatin 10 at home, pill bottle present at bedside. No cholesterol panel upon chart review Plan: * Pending lipid panel #Depression -Patient appears to be taking bupropion 300 mg, pill bottle present at bedside Hospital Maintenance: DVT ppx: SCDs Diet: regular GI prophylaxis:Protonix 40 mg p.o. daily IV lines: Peripheral IVs Code status: DNR/DNI Dispo: Telemetry monitoring floor, fluid resuscitation and antibiotics for acute diarrhea/colitis. Pending stool studies. Patient assessed under supervision of attending physician Dr.K Milan and senior resident Dr. Bart Alexandre PGY-2 Natacha Yates MD PGY-1, Internal Medicine Please note: this document was transcribed using voice recognition technology; minor inaccuracies may be present. Attending Provider Attestation/Addendum Eli Hope, , attest that I was physically present for the castre[place] portions of the service and evaluated the patient with the resident and I reviewed and discussed the case with the resident and agree with the resident's findings and plans of care as documented above Patient seen and evaluated this AM. Brothers at bedside and state that the patient has had progressively worsening functional decline in the past month. She has had decreased PO intake and worsening unsteadiness. Patient had a fall prior to presentation and complains of shoulder pain. XR of shoulder is negative for any fractures. CT abd/pelvis showed nonspecific colitis. She denies any pain on palpation of abdomen, nausea or vomiting. Patient has been refusing medications and labs as her brother states that she thinks we are out to get her . Provided patient with reassurance that we are here to help. Patient states she is tired and is withdrawn at time of encounter. Will continue with IV abx for colitis. Patient has not had a bm for over a week. Will start pt on bowel regimen.
[2025-11-04] MEDS: ACETAMINOPHEN IVPB 1,000 MG/100 ML VIAL 250 MG IV ×2 (10:41→17:57)
[2025-11-04] MEDS: metroNIDAZOLE/NS 500 MG IVPB 500 MG/100 ML BAG 200 MG IV ×2 (10:43→22:00)
--- NOTE | 2025-11-04 12:33 | PC.SS ---
Patient Lavern Piña is a 85 Year old female admitted for Sepsis secondary to Colitis. SS met at bedside with patient's brother, Eber and Dheeraj Lim. Patient's brother, Dheeraj Reports he is patient's surrogate decision maker 33. Patient lives at home with Eber who reports patient utilizes a rollator walker however has been having trouble walking. Patient's brothers assist with ADL's. Choice of pharmacy is [facility]. PCP is Manpreet London. SS inquired about SNF, However patients brother refused SNF, SS inquired about HH and as well patient's brother do not want HH for patient. At the time of discharge patient's brothers would like patient to discharge back home. SS will need to assist with transportation. Discharge plan: Home Next of kin, Dheeraj Lim PCP: Manpreet London
[2025-11-04] MEDS: THIAMINE INJ 100 MG/ML VIAL 2 ML IVP (17:57)
[2025-11-05] VITALS (7 sets, daily range): BP systolic 108–127; BP diastolic 58–74; PULSE 57–101; RESP 15–97; TEMP 36.2–36.9; O2SAT 93–96; BMI 26.6; BMI 12.0
[2025-11-05] MEDS: ACETAMINOPHEN IVPB 1,000 MG/100 ML VIAL 250 MG IV ×2 (00:06→06:09)
[2025-11-05] MEDS: VANCOMYCIN/NS 1 GM IVPB 200 ML IV (04:41)
[2025-11-05] MEDS: metroNIDAZOLE/NS 500 MG IVPB 500 MG/100 ML BAG 200 MG IV ×3 (05:46→22:55)
[2025-11-05 06:03] LABS: Ammonia 10 uMol/L (11-32)
[2025-11-05 06:13] LABS: Basophils # (Auto) 0.0 Thou/mm3 (0.0-0.2); Basophils % (Auto) 1 % (0-2.5); Eosinophils # (Auto) 0.1 Thou/mm3 (0.0-0.5); Eosinophils % (Auto) 2 % (0-10); Hematocrit 33.4 % (36.0-46.0); Hemoglobin 11.4 g/dL (12.0-16.0); Immature Granulocytes Auto 0.04 Thou/mm3 (0.00-0.00); Lymphocytes # (Auto) 0.9 Thou/mm3 (1.0-4.8); Lymphocytes % (Auto) 13 % (10-50); Mean Corpuscular HGB Conc 34.1 g/dl (31.0-37.0); Mean Corpuscular Hemoglobin 31.4 pg (25.0-35.0); Mean Corpuscular Volume 92 fL (80-100); Monocytes # (Auto) 1.0 Thou/mm3 (0.0-0.8); Monocytes % (Auto) 15 % (0-12); Neutrophils # (Auto) 4.8 Thou/mm3 (1.8-7.7); Neutrophils % (Auto) 69 % (37-80); Nucleated Red Blood Cell # 0.00 Thou/mm3 (0.00-0.00); Nucleated Red Blood Cell % 0 /100 WBC (0); Platelet Count 258 Thou/mm3 (140-440); RDW Standard Deviation 46.1 fL (36.4-46.3); Red Blood Count 3.63 Miln/mm3 (4.00-5.20); White Blood Count 6.9 Thou/mm3 (3.6-11.0)
[2025-11-05 06:25] LABS: Syphilis Nonreactive (Nonreactive)
[2025-11-05 06:46] LABS: Alanine Aminotransferase 19 U/L (10-49); Albumin, Serum 3.2 gm/dL (3.4-4.8); Albumin/Globulin Ratio 1.4 (1.2-2.2); Alkaline Phosphatase 96 U/L (46-116); Anion Gap 10 (7-16); Aspartate Amino Transferase 57 U/L (0-34); BUN/Creatinine Ratio 28 Ratio (12-20); Bilirubin,Total 0.5 mg/dL (0.3-1.2); Blood Urea Nitrogen 34 mg/dL (9-23); Calcium 8.5 mg/dL (8.3-10.6); Calcium (Corrected) 9.1 mg/dL (8.5-10.1); Carbon Dioxide 19.6 mMol/L (20.0-31.0); Chloride 110 mMol/L (98-107); Creatinine (Component) 1.2 mg/dL (0.6-1.3); Estimated Creatinine Clearance 34.2 mL/min (>60); Globulin 2.3 gm/dL (2.3-3.5); Glucose 80 mg/dL (74-106); Magnesium 1.8 mg/dL (1.6-2.6); Osmolality,Calculated 286 (275-295); Potassium 3.6 mMol/L (3.4-5.1); Sodium 140 mMol/L (136-145); Total Protein 5.5 gm/dL (5.7-8.2); eGFR 44 See Note
[2025-11-05] MEDS: CIPROFLOXACIN/D5w 400 MG IVPB 400 MG/200 ML BAG 200 MG IV ×2 (09:12→20:56)
[2025-11-05] MEDS: POLYETHYLENE GLYCOL 17 GM PACKET PO (09:12)
[2025-11-05] MEDS: THIAMINE INJ 100 MG/ML VIAL 2 ML IVP (09:12)
--- NOTE | 2025-11-05 12:36 | ESPR_ITS ---
<Statement entered by Rashel Alexandre MD - 11/05/25 20:02> No acute overnight events. Seen and examined at bedside today and patient does not endorse any abdominal pain, nausea, vomiting, or bowel movements. Checked with RN and also states patient has not had any bowel movements overnight. Vital signs stable. Leukocytosis resolved, hemoglobin dropped from 13.2 to 11.4. Hyponatremia resolved, NEHEMIAH resolved. Prelim blood cultures growing GPC in 1 of 2 bottles and was started on vancomycin overnight. Will follow cultures and repeat cultures obtained. Will continue ciprofloxacin and Flagyl for colitis at this time. As patient has not had a bowel movement, no stool studies have been sent yet. ----- Note reviewed and agree with care plan as documented. Please refer to the note below for further details. Plan discussed with attending physician Dr. Joe Alexandre MD PGY-2 Internal Medicine Documentation for date of: 11/05/25 Subjective Subjective Interval history: No acute event overnight. Patient seen and examined at bedside today. No active complaint, patient denies nausea, vomiting, abdominal pain, diarrhea and constipation. Patient saturating well on room air. CBC showed resolved leukocytosis, hemoglobin and hematocrit downtrending with no active bleeding. Blood culture showed preliminary GPC in 1 bottle. Started patient on vancomycin pharmacy dose. Also resume home Wellbutrin 100 mg p.o. and atorvastatin 5 mg p.o. Will continue to advance diet as tolerated. Exam Vital Signs Temp Pulse Resp BP Pulse Ox O2 Del Method 97.1 F 65 15 117/66 95 Room Air 11/05/25 08:00 11/05/25 08:00 11/05/25 08:00 11/05/25 08:00 11/05/25 08:00 11/05/25 08:00 Narrative Exam General: Alert, no acute distress.Conversational and non-toxic appearing. Right Breast fold cellulitis Skin: Warm, dry, intact. No rash or ecchymoses. Head: Normocephalic, atraumatic. Eye: Normal conjunctiva, PERRL. Throat: Oral mucosa moist. No obvious lesions in oropharynx. Cardiovascular: Regular rate and rhythm, no murmur, +S1/S2. Respiratory: Lungs are clear to auscultation, respirations unlabored, no crackles, no wheezing. Gastrointestinal: Soft, nontender, non-distended. No guarding or rebound tenderness. Extremities: Lymphedema. Left knee bruising. Neuro: Alert and oriented x3.No focal deficits observed. Conversant, moving all extremities. No overt cerebellar signs/incoordination. Psychiatric: Cooperative, appropriate affect Objective Labs 11/06/25 04:38 11/06/25 04:38 Labs: Laboratory Results - last 24 hr 11/05/25 05:15 WBC 6.9 D RBC 3.63 L Hgb 11.4 L Hct 33.4 L MCV 92 MCH 31.4 MCHC 34.1 RDW Std Deviation 46.1 Plt Count 258 Neut % (Auto) 69 Lymph % (Auto) 13 [place] % (Auto) 15 H Eos % (Auto) 2 Baso % (Auto) 1 Neut # (Auto) 4.8 Lymph # (Auto) 0.9 L [place] # (Auto) 1.0 H Eos # (Auto) 0.1 Baso # (Auto) 0.0 Immature Gran # (Auto) 0.04 H Absolute Nucleated RBC 0.00 Immature Gran % 1 H Nucleated RBC % 0 Sodium 140 Potassium 3.6 D Chloride 110 H Carbon Dioxide 19.6 L Anion Gap 10 BUN 34 H Creatinine 1.2 D Estim Creat Clear Calc 34.2 L eGFR 44 L BUN/Creatinine Ratio 28 H Glucose 80 Calculated Osmolality 286 Calcium 8.5 Corrected Calcium 9.1 Magnesium 1.8 Total Bilirubin 0.5 AST 57 H ALT 19 Alkaline Phosphatase 96 D Ammonia 10 L Total Protein 5.5 L Albumin 3.2 L D Globulin 2.3 Albumin/Globulin Ratio 1.4 Syphilis Serology Nonreactive ABG Interpretation ABG results: 11/04/25 09:44 VBG pH 7.42 VBG pCO2 28 L VBG pO2 57 VBG Base Excess -5 L Quality Measures Quality Measures VTE prophylaxis and none Advance care planning discussed with:: patient Assessment & Plan Assessment Current Active Medications: Generic Name Dose Route Start Last Admin Trade Name Freq PRN Reason Stop Dose Admin Acetaminophen 650 mg 11/04/25 05:38 Acetaminophen 325 Mg Tablet PO 12/04/25 05:37 On Hold: 11/04/25 09:38 Q6H PRN Comment: IV APAP ORDERED Fever >100.4 Ciprofloxacin/Dextrose 400 mg in 200 mls @ 200 mls/hr 11/04/25 05:44 11/05/25 09:12 Cipro Ivpb IV 11/11/25 05:43 200 mls/hr Q12HR DAVID Administration Metronidazole 500 mg in 100 mls @ 200 mls/hr 11/04/25 11:00 11/05/25 06:16 Flagyl 500 Mg Iv IV 11/11/25 10:59 Infused Q8HR DAVID Infusion Pharmacy Consult 1 each 11/06/25 09:00 Vancomycin Pharmacy To Dose 1 Each Each IV 12/06/25 08:59 QDAY PRN CONSULT Polyethylene Glycol 17 gm 11/05/25 09:00 11/05/25 09:12 Polyethylene Glycol 17 Gm Packet PO 12/05/25 08:59 17 gm On Hold: 11/05/25 11:19 QDAY DAVID Administration Thiamine HCl 100 mg 11/04/25 16:30 11/05/25 09:12 Thiamine Inj 100 Mg/Ml Vial 2 Ml IVP 12/04/25 16:29 100 mg QDAY DAVID Administration Plan 85-year-old female with a past medical history of hypertension, advanced arthritis with kyphoscoliosis requiring assistance for transfer who presented to the ED late in the evening on 11/03/2025 with weakness and associated diarrhea for the past 3 to 4 days. Patient is a poor historian. She was found to be hypotensive with a BP of 88/55 on arrival. She had a white count of 12.[address] showed evidence of colitis. Sepsis alert was called. Patient was admitted for sepsis secondary to suspected colitis. #Acute onset diarrhea, likely infectious (resolve) Patient presented with a 3 to 4-day history of explosive diarrhea.Was found to have a BP of 88/55, pulse of 41. Patient met 1/4 SIRS criteria with a leukocytosis of 12.2, though the patient was hypotensive so sepsis alert was called. However pt doent meet the sepsis or qSOFA criteria . Patient improved after receiving 2 L normal saline in the ED, blood pressure improved to 117/58. Constipation may have led to colitis leading to septic picture presenting with hypotension and leukocytosis. Lactate was negative. Combination of acute diarrhea while taking antihypertensive medications may lead to hypotension -Abdominal CT showed trace bilateral pleural effusions with underlying atelectasis, moderate-sized hiatal hernia, no evidence of bowel obstruction, moderate amount of fecal material in the colon - 11/03: Blood cultures preliminary no growth at 48 hours in 1 bottle and GPC in another bottle - 11/05: Syphilis non reactive Plan: - Ciprofloxacin 400 mg every 12 hours ( 11/04- - Metronidazole 500 mg every 8 hours ( 11/04- - Stool calprotectin, C. difficile, norovirus, WBCs , stool culture, pending #? GPC bacteremia Preliminary results from blood cultures on 11/03 growing GPC in 1/2 bottles and anaerobic bottle only. - Vancomycin pharmacy dose (11/05- - Follow-up culture speciation - Follow-up repeat cultures - Deescalate antibiotics as necessary #NEHEMIAH, likely Prerenal (resolve) #Mild Hyponatremia (resolved) Patient presented with a BUN of 38 and creatinine of 2.9. Patient had normal BUN and creatinine parameters about a year ago. In that amount of time, a new baseline creatinine may have been established. Increased creatinine may reflect acute volume loss due to diarrhea. Patient may be taking antihypertensives in the presence of acute nonbloody diarrhea, which may have led to NEHEMIAH. Hyponatremia in setting of diarrhea and dehydration. Plan: - IV fluid resuscitation as above - Avoid nephrotoxic agents #CT findings of moderate-sized hiatal hernia Home medication omeprazole 40 mg p.o. daily - Protonix 40 mg p.o. daily #Essential Hypertension -Per chart review of patient's history -Blood pressures have been soft. Home medication-amlodipine 5 mg p.o. Plan - Will hold antihypertensives in the presence of acute diarrhea as this may have led to hypotension #Left shoulder calcific tendinitis #Hx Advanced arthritis with kyphoscoliosis Patient fell with possible injury to both shoulders. On physical exam noted right shoulder discomfort, limited movement 11/04: bilateral shoulder x-ray showed left shoulder calcific tendinitis. No shoulder fractures or dislocations Plan - pain controlled -Outpatient follow-up #Hyperlipidemia Patient appears to be taking simvastatin 10 at home, pill bottle present at bedside. No cholesterol panel upon chart review Plan: - Pending lipid panel #Depression -Patient appears to be taking bupropion 300 mg, pill bottle present at bedside Plan - Resume home Wellbutrin 300 mg p.o. daily #Distributive shock (Resolved) #Hypotension (resolve) #Leukocytosis (resolve) Hospital Maintenance: DVT ppx: SCDs Diet: regular/ ensure plus high protein GI prophylaxis:Protonix 40 mg p.o. daily IV lines: Peripheral IVs Code status: DNR/DNI Dispo: Telemetry monitoring floor, fluid resuscitation and antibiotics for acute diarrhea/colitis. Pending stool studies. Patient assessed under supervision of attending physician and senior resident Dr. Bart Alexandre PGY-2 Natacha Yates MD PGY-1, Internal Medicine Please note: this document was transcribed using voice recognition technology; minor inaccuracies may be present. Attending Provider Attestation/Addendum I have examined the patient, reviewed labs and imaging findings, discussed the case with the resident(s), and reviewed entered orders. I agree with the plan of care as outlined in this note. Dr. Joe MD
[2025-11-05] MEDS: PANTOPRAZOLE 40 MG TABLET PO ×2 (13:33→20:56)
[2025-11-05] MEDS: ATORVASTATIN CALCIUM 10 MG TABLET 5 MG PO (20:55)
[2025-11-06] VITALS (10 sets, daily range): BP systolic 116–134; BP diastolic 62–78; PULSE 62–96; RESP 10–95; TEMP 36.1–37.1; O2SAT 92–98; BMI 12.0
[2025-11-06 05:15] LABS: Basophils # (Auto) 0.1 Thou/mm3 (0.0-0.2); Basophils % (Auto) 1 % (0-2.5); Eosinophils # (Auto) 0.2 Thou/mm3 (0.0-0.5); Eosinophils % (Auto) 3 % (0-10); Hematocrit 33.4 % (36.0-46.0); Hemoglobin 11.4 g/dL (12.0-16.0); Immature Granulocytes Auto 0.17 Thou/mm3 (0.00-0.00); Lymphocytes # (Auto) 1.5 Thou/mm3 (1.0-4.8); Lymphocytes % (Auto) 18 % (10-50); Mean Corpuscular HGB Conc 34.1 g/dl (31.0-37.0); Mean Corpuscular Hemoglobin 31.5 pg (25.0-35.0); Mean Corpuscular Volume 92 fL (80-100); Monocytes # (Auto) 1.2 Thou/mm3 (0.0-0.8); Monocytes % (Auto) 14 % (0-12); Neutrophils # (Auto) 5.1 Thou/mm3 (1.8-7.7); Neutrophils % (Auto) 62 % (37-80); Nucleated Red Blood Cell # 0.00 Thou/mm3 (0.00-0.00); Nucleated Red Blood Cell % 0 /100 WBC (0); Platelet Count 266 Thou/mm3 (140-440); RDW Standard Deviation 47.5 fL (36.4-46.3); Red Blood Count 3.62 Miln/mm3 (4.00-5.20); White Blood Count 8.3 Thou/mm3 (3.6-11.0)
[2025-11-06] MEDS: metroNIDAZOLE/NS 500 MG IVPB 500 MG/100 ML BAG 200 MG IV ×3 (05:38→22:18)
[2025-11-06 05:50] LABS: Alanine Aminotransferase 19 U/L (10-49); Albumin, Serum 3.3 gm/dL (3.4-4.8); Albumin/Globulin Ratio 1.5 (1.2-2.2); Alkaline Phosphatase 96 U/L (46-116); Anion Gap 12 (7-16); Aspartate Amino Transferase 50 U/L (0-34); BUN/Creatinine Ratio 28 Ratio (12-20); Bilirubin,Total 0.4 mg/dL (0.3-1.2); Blood Urea Nitrogen 22 mg/dL (9-23); Calcium 8.3 mg/dL (8.3-10.6); Calcium (Corrected) 8.9 mg/dL (8.5-10.1); Carbon Dioxide 19.8 mMol/L (20.0-31.0); Chloride 111 mMol/L (98-107); Creatinine (Component) 0.8 mg/dL (0.6-1.3); Estimated Creatinine Clearance 50.2 mL/min (>60); Globulin 2.2 gm/dL (2.3-3.5); Glucose 91 mg/dL (74-106); Osmolality,Calculated 288 (275-295); Potassium 4.0 mMol/L (3.4-5.1); Sodium 143 mMol/L (136-145); Total Protein 5.5 gm/dL (5.7-8.2); eGFR > 60 See Note
[2025-11-06] MEDS: BuPROPion HCL XL 150 MG TABCR 300 MG PO (08:53)
[2025-11-06] MEDS: PANTOPRAZOLE 40 MG TABLET PO ×2 (08:54→21:01)
[2025-11-06] MEDS: THIAMINE 100 MG TABLET PO (08:55)
[2025-11-06] MEDS: CIPROFLOXACIN/D5w 400 MG IVPB 400 MG/200 ML BAG 200 MG IV ×2 (09:50→21:01)
[2025-11-06] MEDS: Vancomycin Inj 750 MG in SODIUM CHLORIDE 0.9% 250 ML 250 ML 120 MG IV ×2 (09:50→22:18)
--- NOTE | 2025-11-06 10:51 | ESPR_ITS ---
<Statement entered by Rashel Alexandre MD - 11/06/25 15:20> No acute overnight events. Seen and examined at bedside and does not have any complaints, including diarrhea, abdominal pain, nausea, or vomiting. She still has not had a bowel movement and have not been able to obtain a stool sample. Vital signs are stable. Labs reviewed and no leukocytosis, hemoglobin stable. Chem panel shows improving renal function, and otherwise is unremarkable. Will continue with cipro/flagyl for colitis and vancomycin for blood cultures from 11/03 growing GPC. Repeat cultures from 11/05 showing NGTD. Pending placement for SNF and will require one more midnight. Anticipate discharge within next 24-48 hours. ----- Note reviewed and agree with care plan as documented. Please refer to the note below for further details. Plan discussed with attending physician Dr. Joe Alexandre MD PGY-2 Internal Medicine Documentation for date of: 11/06/25 Subjective Subjective Interval history: No acute events overnight. Patient seen and examined at bedside with no active complaint. Vitals are stable. Patient patient tolerating well on room air. Patient has not had a bowel movement for the past 2 days, hence no stool studies were obtained. Restart the patient on MiraLAX. Blood culture from 11/03 grew GPC in 1 bottles. Labs reviewed there is no leukocyte, AST improving. Pending SNF authorization Anticipate discharge within 24 to 48 hours. Exam Vital Signs Temp Pulse Resp BP Pulse Ox O2 Del Method 97.4 F 70 21 H 119/62 92 L Room Air 11/06/25 07:30 11/06/25 07:30 11/06/25 07:30 11/06/25 07:30 11/06/25 07:30 11/06/25 07:30 Narrative Exam General: Alert, no acute distress.Conversational and non-toxic appearing. Right Breast fold cellulitis Skin: Warm, dry, intact. No rash or ecchymoses. Head: Normocephalic, atraumatic. Eye: Normal conjunctiva, PERRL. Throat: Oral mucosa moist. No obvious lesions in oropharynx. Cardiovascular: Regular rate and rhythm, no murmur, +S1/S2. Respiratory: Lungs are clear to auscultation, respirations unlabored, no crackles, no wheezing. Gastrointestinal: Soft, nontender, non-distended. No guarding or rebound tenderness. Extremities: Lymphedema. Left knee bruising. Neuro: Alert and oriented x3.No focal deficits observed. Conversant, moving all extremities. No overt cerebellar signs/incoordination. Psychiatric: Cooperative, appropriate affect Objective Labs 11/07/25 05:05 11/07/25 05:05 Labs: Laboratory Results - last 24 hr 11/06/25 04:38 WBC 8.3 RBC 3.62 L Hgb 11.4 L Hct 33.4 L MCV 92 MCH 31.5 MCHC 34.1 RDW Std Deviation 47.5 H Plt Count 266 Neut % (Auto) 62 Lymph % (Auto) 18 Piute % (Auto) 14 H Eos % (Auto) 3 Baso % (Auto) 1 Neut # (Auto) 5.1 Lymph # (Auto) 1.5 Piute # (Auto) 1.2 H Eos # (Auto) 0.2 Baso # (Auto) 0.1 Immature Gran # (Auto) 0.17 H Absolute Nucleated RBC 0.00 Immature Gran % 2 H Nucleated RBC % 0 Sodium 143 Potassium 4.0 Chloride 111 H Carbon Dioxide 19.8 L Anion Gap 12 BUN 22 Creatinine 0.8 Estim Creat Clear Calc 50.2 L eGFR > 60 BUN/Creatinine Ratio 28 H Glucose 91 Calculated Osmolality 288 Calcium 8.3 Corrected Calcium 8.9 Total Bilirubin 0.4 AST 50 H ALT 19 Alkaline Phosphatase 96 Total Protein 5.5 L Albumin 3.3 L Globulin 2.2 L Albumin/Globulin Ratio 1.5 ABG Interpretation ABG results: 11/04/25 09:44 VBG pH 7.42 VBG pCO2 28 L VBG pO2 57 VBG Base Excess -5 L Quality Measures Quality Measures VTE prophylaxis and none Advance care planning discussed with:: patient and other Assessment & Plan Assessment Current Active Medications: Generic Name Dose Route Start Last Admin Trade Name Freq PRN Reason Stop Dose Admin Acetaminophen 650 mg 11/04/25 05:38 Acetaminophen 325 Mg Tablet PO 12/04/25 05:37 On Hold: 11/04/25 09:38 Q6H PRN Comment: IV APAP ORDERED Fever >100.4 Atorvastatin Calcium 5 mg 11/05/25 21:00 11/05/25 20:55 Atorvastatin Calcium 10 Mg Tablet PO 12/05/25 20:59 5 mg HS DAVID Administration Protocol Bupropion HCl 300 mg 11/06/25 09:00 11/06/25 08:53 Bupropion Hcl Xl 150 Mg Tabcr PO 12/06/25 08:59 300 mg QDAY DAVID Administration Ciprofloxacin/Dextrose 400 mg in 200 mls @ 200 mls/hr 11/04/25 05:44 11/06/25 09:50 Cipro Ivpb IV 11/11/25 05:43 200 mls/hr Q12HR DAVID Administration Metronidazole 500 mg in 100 mls @ 200 mls/hr 11/04/25 11:00 11/06/25 05:38 Flagyl 500 Mg Iv IV 11/11/25 10:59 200 mls/hr Q8HR DAVID Administration Vancomycin HCl 750 mg/ Sodium 250 mls @ 120 mls/hr 11/06/25 10:00 11/06/25 09:50 Chloride IV 11/13/25 09:59 120 mls/hr Q12H DAVID Administration Pantoprazole Sodium 40 mg 11/05/25 12:45 11/06/25 08:54 Pantoprazole 40 Mg Tablet PO 12/05/25 12:44 40 mg BID DAVID Administration Protocol Pharmacy Consult 1 each 11/06/25 09:00 Vancomycin Pharmacy To Dose 1 Each Each IV 12/06/25 08:59 QDAY PRN CONSULT Polyethylene Glycol 17 gm 11/05/25 09:00 11/05/25 09:12 Polyethylene Glycol 17 Gm Packet PO 12/05/25 08:59 17 gm QDAY DAVID Administration Thiamine HCl 100 mg 11/06/25 09:00 11/06/25 08:55 Thiamine 100 Mg Tablet PO 12/04/25 08:59 100 mg QDAY DAVID Administration Plan 85-year-old female with a past medical history of hypertension, advanced arthritis with kyphoscoliosis requiring assistance for transfer who presented to the ED late in the evening on 11/03/2025 with weakness and associated diarrhea for the past 3 to 4 days. Patient is a poor historian. She was found to be hypotensive with a BP of 88/55 on arrival. She had a white count of 12.[address] showed evidence of colitis. Sepsis alert was called. Patient was admitted for sepsis secondary to suspected colitis. #Acute onset diarrhea, likely infectious (resolve) Patient presented with a 3 to 4-day history of explosive diarrhea.Was found to have a BP of 88/55, pulse of 41. Patient met 1/4 SIRS criteria with a leukocytosis of 12.2, though the patient was hypotensive so sepsis alert was called. However pt doent meet the sepsis or qSOFA criteria . Patient improved after receiving 2 L normal saline in the ED, blood pressure improved to 117/58. Constipation may have led to colitis leading to septic picture presenting with hypotension and leukocytosis. Lactate was negative. Combination of acute diarrhea while taking antihypertensive medications may lead to hypotension -Abdominal CT showed trace bilateral pleural effusions with underlying atelectasis, moderate-sized hiatal hernia, no evidence of bowel obstruction, moderate amount of fecal material in the colon - 11/03: Blood cultures preliminary no growth at 48 hours in 1 bottle and GPC in another bottle - 11/05: Syphilis non reactive Plan: - Ciprofloxacin 400 mg every 12 hours ( 11/04- - Metronidazole 500 mg every 8 hours ( 11/04- - Stool calprotectin, C. difficile, norovirus, WBCs , stool culture, pending #? GPC bacteremia Preliminary results from blood cultures on 11/03 growing GPC in 1/2 bottles and anaerobic bottle only. - Vancomycin pharmacy dose (11/05- - Follow-up culture speciation - Follow-up repeat cultures - Deescalate antibiotics as necessary #NEHEMIAH, likely Prerenal (resolve) #Mild Hyponatremia (resolved) Patient presented with a BUN of 38 and creatinine of 2.9. Patient had normal BUN and creatinine parameters about a year ago. In that amount of time, a new baseline creatinine may have been established. Increased creatinine may reflect acute volume loss due to diarrhea. Patient may be taking antihypertensives in the presence of acute nonbloody diarrhea, which may have led to NEHEMIAH. Hyponatremia in setting of diarrhea and dehydration. Plan: - IV fluid resuscitation as above - Avoid nephrotoxic agents #CT findings of moderate-sized hiatal hernia Home medication omeprazole 40 mg p.o. daily - Protonix 40 mg p.o. daily #Essential Hypertension -Per chart review of patient's history -Blood pressures have been soft. Home medication-amlodipine 5 mg p.o. Plan - Will hold antihypertensives in the presence of acute diarrhea as this may have led to hypotension #Left shoulder calcific tendinitis #Hx Advanced arthritis with kyphoscoliosis Patient fell with possible injury to both shoulders. On physical exam noted right shoulder discomfort, limited movement 11/04: bilateral shoulder x-ray showed left shoulder calcific tendinitis. No shoulder fractures or dislocations Plan - Pain controlled -Outpatient follow-up #Hyperlipidemia Patient appears to be taking simvastatin 10 at home, pill bottle present at bedside. No cholesterol panel upon chart review Plan: - Atorvasatain 5mg po HS #Depression -Patient appears to be taking bupropion 300 mg, pill bottle present at bedside Plan - Resume home Wellbutrin 300 mg p.o. daily #Distributive shock (Resolved) #Hypotension (resolve) #Leukocytosis (resolve) Hospital Maintenance: DVT ppx: SCDs Diet: regular/ ensure plus high protein GI prophylaxis:Protonix 40 mg p.o. daily IV lines: Peripheral IVs Code status: DNR/DNI Dispo: Telemetry monitoring floor, fluid resuscitation and antibiotics for acute diarrhea/colitis. Pending SNF authorization. Patient assessed under supervision of attending physician and senior resident Dr. Bart Alexandre PGY-2 Natacha Yates MD PGY-1, Internal Medicine Please note: this document was transcribed using voice recognition technology; minor inaccuracies may be present. Attending Provider Attestation/Addendum I have examined the patient, reviewed labs and imaging findings, discussed the case with the resident(s), and reviewed entered orders. I agree with the plan of care as outlined in this note. Dr. Joe MD
--- NOTE | 2025-11-06 11:05 | CHAP ---
Patient was visited by a Spiritual Care Volunteer on 11/05/2025 between 0850 and 1200 and received comfort, encouragement and/or prayer.
--- NOTE | 2025-11-06 11:11 | PC.SS ---
Folow up note/Late entry: SS met with patient late yesterday and discussed d/c options. Patient is agreeable to SNF. Patient on contact precautions for cdiff. Patient worked with PT and was max assist. SS spoke to patient's family this morning and spoke to both of patient's brothers. Family agreeable to SNF. Preference is 1. [facility] and 2. [facility]. SS will present inquiry to facilities. Patient will need 3 night stay and will be ready for d/c by tomorrow.
[2025-11-06] MEDS: ATORVASTATIN CALCIUM 10 MG TABLET 5 MG PO (21:01)
[2025-11-07] VITALS (8 sets, daily range): BP systolic 107–157; BP diastolic 66–83; PULSE 63–96; RESP 16–97; TEMP 36.3–36.9; O2SAT 92–96
[2025-11-07] MEDS: metroNIDAZOLE/NS 500 MG IVPB 500 MG/100 ML BAG 200 MG IV ×2 (05:25→13:44)
[2025-11-07 05:29] LABS: Basophils # (Auto) 0.2 Thou/mm3 (0.0-0.2); Basophils % (Auto) 2 % (0-2.5); Eosinophils # (Auto) 0.4 Thou/mm3 (0.0-0.5); Eosinophils % (Auto) 5 % (0-10); Hematocrit 34.4 % (36.0-46.0); Hemoglobin 11.5 g/dL (12.0-16.0); Immature Granulocytes Auto 0.49 Thou/mm3 (0.00-0.00); Lymphocytes # (Auto) 1.7 Thou/mm3 (1.0-4.8); Lymphocytes % (Auto) 20 % (10-50); Mean Corpuscular HGB Conc 33.4 g/dl (31.0-37.0); Mean Corpuscular Hemoglobin 31.2 pg (25.0-35.0); Mean Corpuscular Volume 93 fL (80-100); Monocytes # (Auto) 1.0 Thou/mm3 (0.0-0.8); Monocytes % (Auto) 13 % (0-12); Neutrophils # (Auto) 4.6 Thou/mm3 (1.8-7.7); Neutrophils % (Auto) 55 % (37-80); Nucleated Red Blood Cell # 0.00 Thou/mm3 (0.00-0.00); Nucleated Red Blood Cell % 0 /100 WBC (0); Platelet Count 249 Thou/mm3 (140-440); RDW Standard Deviation 48.1 fL (36.4-46.3); Red Blood Count 3.69 Miln/mm3 (4.00-5.20); White Blood Count 8.3 Thou/mm3 (3.6-11.0)
[2025-11-07 06:10] LABS: Alanine Aminotransferase 19 U/L (10-49); Albumin, Serum 3.2 gm/dL (3.4-4.8); Albumin/Globulin Ratio 1.5 (1.2-2.2); Alkaline Phosphatase 99 U/L (46-116); Anion Gap 10 (7-16); Aspartate Amino Transferase 44 U/L (0-34); BUN/Creatinine Ratio 16 Ratio (12-20); Bilirubin,Total 0.4 mg/dL (0.3-1.2); Blood Urea Nitrogen 11 mg/dL (9-23); Calcium 8.2 mg/dL (8.3-10.6); Calcium (Corrected) 8.8 mg/dL (8.5-10.1); Carbon Dioxide 21.6 mMol/L (20.0-31.0); Chloride 111 mMol/L (98-107); Creatinine (Component) 0.7 mg/dL (0.6-1.3); Estimated Creatinine Clearance 57.4 mL/min (>60); Globulin 2.2 gm/dL (2.3-3.5); Glucose 100 mg/dL (74-106); Osmolality,Calculated 284 (275-295); Potassium 4.3 mMol/L (3.4-5.1); Sodium 143 mMol/L (136-145); Total Protein 5.4 gm/dL (5.7-8.2); eGFR > 60 See Note
[2025-11-07] MEDS: LACTULOSE SYRUP 20 GM/30 ML UDC PO (08:51)
[2025-11-07] MEDS: BuPROPion HCL XL 150 MG TABCR 300 MG PO (08:52)
[2025-11-07] MEDS: PANTOPRAZOLE 40 MG TABLET PO (08:52)
[2025-11-07] MEDS: THIAMINE 100 MG TABLET PO (08:53)
[2025-11-07] MEDS: POLYETHYLENE GLYCOL 17 GM PACKET PO (08:53)
[2025-11-07 09:48] LABS: Vancomycin,Trough 8.6 mcg/mL (5.0-10.0)
[2025-11-07] MEDS: CIPROFLOXACIN/D5w 400 MG IVPB 400 MG/200 ML BAG 200 MG IV (09:58)
[2025-11-07] MEDS: VANCOMYCIN/WATER 1250 MG IVPB 250 ML 120 MG IV (11:29)
--- NOTE | 2025-11-07 14:07 | ESDS_ITS ---
<Statement entered by Rashel Alexandre MD - 11/07/25 16:21> Note reviewed and agree with care plan as documented. Please refer to the note below for further details. Plan discussed with attending physician Dr. Joe Alexandre MD PGY-2 Internal Medicine Planned Discharge Date 11/07/25 DS: Providers Provider Date of admission: 11/04/25 05:38 Primary care physician: Manpreet London MD Admitting Provider: Naveen Segura MD Attending Provider on Admission: Naveen Segura MD Consults: 11/04/25 16:17 Referral Registered Dietitian Routine Comment: 11/05/25 08:31 Referral Physical Therapy Routine Comment: Physician Instructions: 11/05/25 14:31 Referral Wound Care Routine Comment: wound on buttocks Attending Provider on DC: Emiliano Diaz MD Discharging Provider: Emiliano Diaz MD Anticipated date of discharge: 11/07/25 DS: Diagnosis Problem List Completed Was Problem List Reviewed/Reconciled?: Yes Hospital Course Hospital Course Hospital course: Summary 85-year-old female with a past medical history of hypertension, advanced arthritis with kyphoscoliosis requiring assistance for transfer who presented to the ED late in the evening on 11/03/2025 with weakness and associated diarrhea for the past 3 to 4 days. Patient is a poor historian. She was found to be hypotensive with a BP of 88/55 on arrival. She had a white count of 12.[address] showed evidence of colitis. Sepsis alert was called. Patient was admitted for sepsis secondary to suspected colitis. However had 3 to 4-day history of explosive diarrhea.Was found to have a BP of 88/55, pulse of 41. Patient met 1/4 SIRS criteria with a leukocytosis of 12.2, though the patient was hypotensive so sepsis alert was called. However pt did not meet the sepsis or qSOFA criteria . Patient improved after receiving 2 L normal saline in the ED, blood pressure improved to 117/58. Constipation may have led to colitis leading to septic picture presenting with hypotension and leukocytosis. Lactate was negative. Combination of acute diarrhea while taking antihypertensive medications may lead to hypotension. Abdominal CT showed trace bilateral pleural effusions with underlying atelectasis, moderate-sized hiatal hernia, no evidence of bowel obstruction, moderate amount of fecal material in the colon. Blood cultures results no growth at 48 hours in 1 bottle and GPC in another bottle, Staphylococcus epidermidis. Syphilis test non reactive . Patient was manage with Ciprofloxacin 400 mg and Metronidazole 500 mg every 8 hours (11/04-11/07) to cover likely infectious causes of diarrhea however since pt did not have BM Stools studies were not collected.Hence started patient on MiraLAX and lactulose. Subsequently patient had a large bowel movement. Vancomysin (11/05- 11/07) to cover for possible GPC positive blood culture. Throughout the hospital course patient other problems were managed and her condition improved remarkably with progression of hospital course. Further plan to discharge the patient to group home facility since she is stable and responded well to hospital treatment. Discharge recommendation: - Encourage patient to increase fluid intake and drink plenty of water - Follow up with PCP in 1-2 weeks - Continue rest of medications as previously prescribed - Return to the ED or call EMS is symptoms return and/or worsen Hospital Diagnoses: #Acute onset diarrhea, likely secretory (resolve) #? GPC bacteremia #NEHEMIAH, likely Prerenal (resolve) #Mild Hyponatremia (resolved) #CT findings of moderate-sized hiatal hernia #Essential Hypertension #Left shoulder calcific tendinitis #Hx Advanced arthritis with kyphoscoliosis #Hyperlipidemia #Depression #Hypotension #Hypotension (resolve) #Leukocytosis (resolve) Patient assessed under supervision of attending physician and senior resident Dr. Alexandre PGY-2 Natacha Yates MD PGY-1, Internal Medicine Please note: this document was transcribed using voice recognition technology; minor inaccuracies may be present. Time Spent with Patient Time attestation: Total time spent providing and/or coordinating discharge services: Time spent: Greater than 30 minutes Exam Vital Signs Temp Pulse Resp BP Pulse Ox O2 Del Method 98.2 F 78 16 136/77 H 95 Room Air 11/07/25 12:10 11/07/25 12:10 11/07/25 12:10 11/07/25 12:10 11/07/25 12:10 11/07/25 12:10 Narrative Exam General: Alert, no acute distress.Conversational and non-toxic appearing. Skin: Warm, dry, intact. No rash or ecchymoses. Head: Normocephalic, atraumatic. Eye: Normal conjunctiva, PERRL. Throat: Oral mucosa moist. No obvious lesions in oropharynx. Cardiovascular: Regular rate and rhythm, no murmur, +S1/S2. Respiratory: Lungs are clear to auscultation, respirations unlabored, no crackles, no wheezing. Gastrointestinal: Soft, nontender, non-distended. No guarding or rebound tenderness. Extremities: No edema, no cyanosis, no clubbing.Lymphedema Neuro: Alert and oriented x3.No focal deficits observed. Conversant, moving all extremities. No overt cerebellar signs/incoordination. Psychiatric: Cooperative, appropriate affect Discharge Plan Plan Patient Disposition: Xfer Skilled Nsg Fac (SNF) Patient condition on transfer: Stable Care Plan Goals: - Encourage patient to increase fluid intake and drink plenty of water - Follow up with PCP in 1-2 weeks - Continue rest of medications as previously prescribed - Return to the ED or call EMS is symptoms return and/or worsen Prescriptions/Referrals Prescriptions/Med Rec: Continued amlodipine 5 mg tablet 5 mg PO QDAY Patient Comments: TAKE ONE TABLET BY MOUTH EVERY DAY FOR BLOOD PRESSURE furosemide 20 mg tablet 20 mg PO QDAY Patient Comments: TAKE ONE TABLET BY MOUTH EVERY MORNING A DIURETIC bupropion HCl 300 mg tablet extended release 24 hr 300 mg PO QDAY Patient Comments: TAKE ONE TABLET BY MOUTH EVERY MORNING benazepril 20 mg tablet 20 mg PO QDAY Patient Comments: TAKE ONE TABLET BY MOUTH EVERY DAY FOR BLOOD PRESSURE simvastatin 10 mg tablet 10 mg PO HS Patient Comments: TAKE ONE TABLET BY MOUTH AT BEDTIME FOR CHOLESTEROL esomeprazole magnesium 40 mg capsule,delayed release(DR/EC) 40 mg PO Q24H Patient Comments: TAKE ONE CAPSULE BY MOUTH EVERY DAY Referrals: Manpreet London MD [Primary Care Provider, Family Practice] Patient/Caregiver Discharge Instructions Print Language: Slovenian Stand Alone Forms: [facility] Award Info., Patient Portal Info Letter Discharge Order Discharge Orders: Discharge (Routine); Ordered 11/07/25 Ordered By: Natacha Yates Quality Discharge Quality Measures VTE prophylaxis Attestestation MD Attestation I have examined the patient, reviewed labs and imaging findings, discussed the case with the resident(s), and reviewed entered orders. I agree with the plan of care as outlined in this note. Time Spent: [address] Joe MD
== END 2025-11-07 19:50 | disposition skilled nursing facility (03) | DRG 391 ==
LOC: SERX 11-04 05:15 → SERHOLD 11-04 06:00 → S3SX 11-04 16:27
PROVIDERS: Student in an Organized Health Care Education/Training Program; Admitting Provider Student in an Organized Health Care Education/Training Program; Emergency Provider Emergency Medicine; PCP Family Medicine; Visit Provider Student in an Organized Health Care Education/Training Program
DX: K52.9 Noninfective gastroenteritis and colitis, unspecified (principal); R57.8 Other shock; N17.9 Acute kidney failure, unspecified; E87.1 Hypo-osmolality and hyponatremia; R78.81 Bacteremia; I10 Essential (primary) hypertension; M19.90 Unspecified osteoarthritis, unspecified site; K59.00 Constipation, unspecified; K44.9 Diaphragmatic hernia without obstruction or gangrene; E78.5 Hyperlipidemia, unspecified; F32.A Depression, unspecified; M75.32 Calcific tendinitis of left shoulder; W19.XXXA Unspecified fall, initial encounter; Z66 Do not resuscitate; Z79.899 Other long term (current) drug therapy; E86.0 Dehydration; B96.89 Other specified bacterial agents as the cause of diseases classified elsewhere
CPT/HCPCS: 36415; 71045; 73030; 74176; 80053; 80202; 81001; 82140; 82803; 83605; 83735; 83993; 85025; 86780; 87040; 87077; 87186; 87205; 87449; 87493; 87811; 89051; 93225; 96361; 96365; 97162; 99283; J0131; J0696; J0744; J3373; J3374; J3375; J3411; J3490; J7030; J7050; A9270; J1836

== ENCOUNTER 2025-11-15 18:15 | Inpatient (IN) | payer MEDICARE, MEDICAID, SELFPAY ==
[2025-11-15 18:18] VITALS: BP 122/71; PULSE 78; RESP 15; TEMP 36.9; O2SAT 96
[2025-11-15 18:45] VITALS: PULSE 80; RESP 20; O2SAT 98; BMI 27.8
--- NOTE | 2025-11-15 18:45 | XR_ITS ---
EXAMINATION: AP chest single view TECHNIQUE: AP portable upright chest single view Date and time: November 15, 2025, 1851 hours, comparison November 03, 2025 INDICATIONS: Altered mental status, hypertension and shortness of breath depression today. FINDINGS: Large retrocardiac gastric hernia Moderate enlargement left ventricle, consider left ventricular aneurysm. Ectatic thoracic aorta Subsegmental atelectasis left lower lung zone. No pneumonia or pulmonary edema Significant osteopenia IMPRESSION: Moderate enlargement left ventricle, consider left ventricular aneurysm No pneumonia or pulmonary edema
--- NOTE | 2025-11-15 18:45 | XR_ITS ---
Examination: CT brain head without contrast. 2-D sagittal coronal reconstructions Date and time of exam: November 15, 2025, 1908 hours, comparison August 14, 2025 INDICATIONS: Altered mental status today CTDI: vol (mGy): 48.3 DLP: (mGycm): 980 Technique: Multiple CT axial sections of the brain have been obtained, 5 mm slice thickness. Contrast has not been administered. 2-D sagittal, coronal reconstructions have been obtained Low dose protocols were performed. One or more of the following dose reduction techniques were used; automated exposure control, adjustment of the mA and/or KV according to patient size, use of iterative reconstruction technique. Findings: No significant ventricular enlargement. Intra-axial or extra-axial hemorrhage density is not seen. No mass effect or midline shift Basal cisterns are not remarkable. Fourth ventricle is midline. Cranial vault intact. Chronic mastoiditis Impression: Negative for acute hemorrhage, mass effect or midline shift Advise clinical correlation and follow-up accordingly
--- NOTE | 2025-11-15 18:46 | PD.EDADULT ---
ED General RME/HPI General Chief complaint: Altered Mental Status Stated complaint: AMS Time Seen by Provider: 11/15/25 18:43 Arrival date/time: 11/15/25 18:15 85-year-old female patient with significant history of hypertension, depression, was sent to us from long-term for evaluation regarding deterioration of mentation. Normally patient is GCS of 15, per EMS patient was noted to have GCS of 14 currently slightly confused. On my initial evaluation patient was answering question appropriately, able to communicate but slowly. She told me that she is okay she have no other complaints. No fever noted no diarrhea no vomiting noted. No medication was given prior to ER visit. Related Data Home Medications ?Medication ?Instructions ?Recorded ?Confirmed amlodipine 5 mg tablet 5 mg PO QDAY 11/04/25 11/04/25 benazepril 20 mg tablet 20 mg PO QDAY 11/04/25 11/04/25 bupropion HCl 300 mg 24 hr tablet, 300 mg PO QDAY 11/04/25 11/04/25 extended release esomeprazole magnesium 40 mg 40 mg PO Q24H 11/04/25 11/04/25 capsule,delayed release furosemide 20 mg tablet 20 mg PO QDAY 11/04/25 11/04/25 simvastatin 10 mg tablet 10 mg PO HS 11/04/25 11/04/25 Allergies Allergy/AdvReac Type Severity Reaction Status Date / Time No Known Allergies Allergy Verified 11/15/25 18:50 Review of Systems Review of Systems Narrative Review of Systems: Review of system reviewed and within normal limits except mentioned in HPI ED Exam Narrative Physical exam: VITAL SIGNS: Reviewed. GENERAL APPEARANCE: Alert and interactive but slow to response, follows simple commands, no acute distress, HEAD AND FACE: Non-traumatic. ENT: PERRL, pink conjunctivitis, eyelid no trauma, Mucous membrane moist. NECK: Supple, nontender, no nuchal rigidity. CHEST: No tenderness, no crepitus, no paradoxical movement, no retractions. LUNGS: Clear, well ventilated, symmetric, no rales, no wheezing, no ronchi, no stridor, good breath sounds bilaterally. HEART: Regular rate, regular rhythm, no murmur, no gallops. ABDOMEN: Soft, positive bowel sounds, nondistended, no guarding, nontender, no rebound, no masses, RECTAL: Deferred. GENITAL: Deferred. NEUROLOGICAL: Gross motor function intact sensory function intact, Appropriate for age. MUSCULOSKELETAL: low back nontender, full range of motion. EXTREMITIES: Nontender, full range of motion. SKIN: Color pink, dry, no rash, no lacerations, no abrasions, no contusions. LYMPHATICS: Deferred. Course Quality Measures none Orders Category Date Time Status COVID-19 Screening Questionnaire NOW Care 11/15/25 23:[address] Screening NOW Care 11/15/25 21:53 Active Decision to Admit X1 Care 11/15/25 23:15 Completed Straight [In and Out Catheter] X1 Care 11/15/25 18:[address] chest abdomen pelvis w Stat Exams 11/15/25 21:[address] head/brain wo con Stat Exams 11/15/25 18:45 Completed XR chest 1V Stat Exams 11/15/25 18:45 Completed CBC Stat Lab 11/15/25 18:55 Completed Comprehensive Metabolic Panel Stat Lab 11/15/25 18:55 Completed Partial Thromboplastin Time Stat Lab 11/15/25 18:55 Completed Troponin I Stat Lab 11/15/25 18:55 Completed Urinalysis, C/S if Indicated Stat Lab 11/15/25 20:38 Completed LORazepam [Ativan Inj] Med 11/15/25 21:52 Discontinued 1 mg IVP X1 ONE Ringers Lactated 1000 ml [Lactated Ringers] 1,000 ml Med 11/15/25 18:46 Discontinued IV 999 mls/hr Vital Signs Vital signs: Vital Signs Temperature 98.4 F 11/15/25 18:18 Pulse Rate 78 11/15/25 18:18 Respiratory Rate 15 11/15/25 18:18 Blood Pressure 122/71 11/15/25 18:18 Pulse Oximetry (%) 96 11/15/25 18:18 Discharge Plan Plan Patient Disposition: Admit Acute Care w/in Hospital Problem List Clinical Impression: Acute confusion MDM Narrative MDM hospital course (for use when minimal MDM required): 85-year-old female patient with significant history of hypertension, depression, was sent to us from long-term for evaluation regarding deterioration of mentation. Normally patient is GCS of 15, per EMS patient was noted to have GCS of 14 currently slightly confused. On my initial evaluation patient was answering question appropriately, able to communicate but slowly. She told me that she is okay she have no other complaints. No fever noted no diarrhea no vomiting noted. No medication was given prior to ER visit. Patient's laboratory workup all came back benign, no metabolic or pathologic abnormality noted, CT scan of the head also came back benign within normal limits, CT scan of the abdomen and pelvis also showed came back with no acute pathology noted. On multiple reevaluation patient was still noted to be confused, tried to crawl out of bed on to the floor. Patient also pulled out her IV several times. Patient initially was given IV fluids and IV Ativan so I can have a good CT scan of the head since patient is uncooperative. Spoke with hospitalist, who admitted the patient. Medication Administration(s) Medication Administration History Acetaminophen (Acetaminophen 325 Mg Tablet) 650 mg PO Q6H PRN PRN Reason: Fever >100.4 Stop: 12/16/25 03:11 Atorvastatin Calcium (Atorvastatin Calcium 10 Mg Tablet) 10 mg PO HS DAVID Stop: 12/16/25 20:59 Hydralazine HCl (Hydralazine Inj 20 Mg/Ml Vial) 10 mg IV Q4HR PRN PRN Reason: Blood Pressure Stop: 12/16/25 03:17 Lisinopril (Lisinopril 20 Mg Tablet) 20 mg PO QDAY DAVID Stop: 12/16/25 10:59 Olanzapine (Olanzapine 2.5 Mg Tablet) 5 mg PO Q6HR PRN PRN Reason: AGITATION Stop: 12/16/25 03:11 Sennosides (Senna/Docusate Sod 1 Tab Tablet) 1 tab PO QDAY DAVID; Protocol Stop: 12/16/25 10:59 Discontinued Medications Lactated Ringer's (Lactated Ringers) 1,000 mls @ 999 mls/hr IV .Q1H1M ONE Stop: 11/15/25 19:46 Last Infusion: 11/15/25 20:47 Dose: Infused Documented By: Admin: 11/15/25 19:41 Dose: 999 mls/hr Documented By: PATY Lactated Ringer's (Lactated Ringers) 1,000 mls @ 100 mls/hr IV .Q10H DAVID Stop: 12/16/25 06:06 Last Admin: 11/16/25 06:25 Dose: 100 mls/hr Documented By: PATY Lorazepam (Lorazepam 2 Mg/Ml Vial) 1 mg IVP X1 ONE Stop: 11/15/25 21:53 Last Admin: 11/15/25 22:23 Dose: 1 mg Documented By: PATY Polyethylene Glycol (Polyethylene Glycol 17 Gm Packet) 17 gm PO X1 ONE Stop: 11/16/25 10:51
[2025-11-15 19:02] LABS: Basophils # (Auto) 0.1 Thou/mm3 (0.0-0.2); Basophils % (Auto) 1 % (0-2.5); Eosinophils # (Auto) 0.3 Thou/mm3 (0.0-0.5); Eosinophils % (Auto) 5 % (0-10); Hematocrit 40.1 % (36.0-46.0); Hemoglobin 13.3 g/dL (12.0-16.0); Immature Granulocytes Auto 0.02 Thou/mm3 (0.00-0.00); Lymphocytes # (Auto) 1.2 Thou/mm3 (1.0-4.8); Lymphocytes % (Auto) 18 % (10-50); Mean Corpuscular HGB Conc 33.2 g/dl (31.0-37.0); Mean Corpuscular Hemoglobin 31.1 pg (25.0-35.0); Mean Corpuscular Volume 94 fL (80-100); Monocytes # (Auto) 0.6 Thou/mm3 (0.0-0.8); Monocytes % (Auto) 9 % (0-12); Neutrophils # (Auto) 4.3 Thou/mm3 (1.8-7.7); Neutrophils % (Auto) 66 % (37-80); Nucleated Red Blood Cell # 0.00 Thou/mm3 (0.00-0.00); Nucleated Red Blood Cell % 0 /100 WBC (0); Platelet Count 356 Thou/mm3 (140-440); RDW Standard Deviation 48.5 fL (36.4-46.3); Red Blood Count 4.28 Miln/mm3 (4.00-5.20); White Blood Count 6.5 Thou/mm3 (3.6-11.0)
[2025-11-15 19:15] LABS: Partial Thromboplastin Time 32.1 Seconds (22.0-36.0)
[2025-11-15 19:19] LABS: Alanine Aminotransferase 13 U/L (10-49); Albumin, Serum 3.9 gm/dL (3.4-4.8); Albumin/Globulin Ratio 1.6 (1.2-2.2); Alkaline Phosphatase 124 U/L (46-116); Anion Gap 9 (7-16); Aspartate Amino Transferase 27 U/L (0-34); BUN/Creatinine Ratio 16 Ratio (12-20); Bilirubin,Total 0.6 mg/dL (0.3-1.2); Blood Urea Nitrogen 11 mg/dL (9-23); Calcium 9.1 mg/dL (8.3-10.6); Calcium (Corrected) 9.2 mg/dL (8.5-10.1); Carbon Dioxide 25.5 mMol/L (20.0-31.0); Chloride 108 mMol/L (98-107); Creatinine (Component) 0.7 mg/dL (0.6-1.3); Estimated Creatinine Clearance 57.7 mL/min (>60); Globulin 2.5 gm/dL (2.3-3.5); Glucose 92 mg/dL (74-106); Osmolality,Calculated 282 (275-295); Potassium 3.9 mMol/L (3.4-5.1); Sodium 142 mMol/L (136-145); Total Protein 6.4 gm/dL (5.7-8.2); Troponin I < 0.020 ng/mL (0.0-0.045); eGFR > 60 See Note
[2025-11-15] MEDS: RINGERS LACTATED 1000 ML 1,000 ML 999 ML IV (19:41)
[2025-11-15 20:49] LABS: Bilirubin,Urine Negative (Negative); Blood,Urine Negative (Negative); Clarity,Urine Clear (Clear/Hazy); Collection Type, Urine Clean Catch; Color,Urine Lt-Yellow (Lt Yel-Yel); Culture Indicated,Urine Not Indicated; Glucose, Urine Negative (Negative); Ketones,Urine Negative (Negative); Leukocyte Esterase,Urine Negative (Negative); Nitrite,Urine Negative (Negative); PH,Urine 6.0 (5.0-7.0); Protein,Urine Negative (Neg - Trace); RBC,Urine < 1 /hpf (0-3); Specific Gravity,Urine 1.007 (1.001-1.035); Squamous Epithelial Cell,Urine 1 /hpf (0-5); Urobilinogen,Urine Negative mg/dL (0.0-1.0); WBC,Urine 0 /hpf (0-5)
--- NOTE | 2025-11-15 21:52 | XR_ITS ---
Examination: CT chest with intravenous contrast CT abdomen with intravenous contrast CT pelvis with intravenous contrast 2-D coronal and sagittal reconstructions Time of exam: November 04, 2025, 10:25 p.m. INDICATIONS: Confusion sepsis today CTDI: vol (mGy) : 13.11 DLP: (mGycm): 995 Technique: Multiple axial images of the chest, abdomen and pelvis with intravenous contrast, 3.0 mm slice thickness. Images obtained post intravenous injection Isovue 370 60 cc. 2-D sagittal and coronal reconstructions. Low dose protocols were performed. One or more of the following dose reduction techniques were used; automated exposure control, adjustment of the mA and/or KV according to patient size, use of iterative reconstruction technique. Findings: Large thyroid nodules Thoracic aortic calcification no aneurysmal dilatation No pulmonary artery filling defects on this 9 CTA study Mild to moderate enlargement left ventricle No paratracheal tracheobronchial or bronchopulmonary adenopathy No lobar pneumonia or pulmonary edema No pleural disease No visualized liver lesion Gallbladder wall appears mildly thickened No pancreatic or adrenal mass Splenic calcifications No renal calculi or hydronephrosis No bowel obstruction Normal appendix Colonic diverticulosis, no diverticulitis Atrophic uterus Abundant stool in the rectum with thickening of the rectal wall, mild Bladder intact Severe osteopenia IMPRESSION: Thyroid nodules, consider dedicated thyroid sonography follow-up Mild to moderate enlargement left ventricle No mediastinal lymphadenopathy No pneumonia or pulmonary edema Recommend hepatobiliary sonography to exclude cholecystitis No renal or ureteral calculi, no hydronephrosis Normal appendix No bowel obstruction diverticulitis or free air Abundant stool in the rectum with mild rectal wall thickening, proctitis included in the differential
[2025-11-15 22:21] VITALS: BP 163/83; PULSE 78; RESP 20; O2SAT 98
[2025-11-15] MEDS: LORazepam 2 MG/ML VIAL 1 MG IVP (22:23)
[2025-11-16] VITALS (11 sets, daily range): BP systolic 145–190; BP diastolic 76–103; PULSE 67–87; RESP 16–99; TEMP 36.5–37; O2SAT 94–99; BMI 27.8
--- NOTE | 2025-11-16 03:20 | ESHP_ITS ---
<Statement entered by Dino Crump DO - 11/16/25 06:12> Patient was seen and examined by me. After the review of the clinical data, I agree that the patient will need an admission on Observation status for Acute encephalopathy of unclear cause. Plan of care discussed with patient who is in agreement. I Dino Crump DO, attest that I was physically present for castrejon portions of evaluation, examined the patient, reviewed the labs and imaging, and discussed the plan of care and management with the residents team. I agree with the findings and plans documented above. Documentation for date of: 11/16/25 HPI History of Present Illness History of present illness: HPI: 85-year-old female past medical history of hypertension, advanced arthritis with kyphoscoliosis requiring assistance for transfer who presented to the ED in the evening of 11/15/2025 from [facility] after caregiver noticed a change in the patient's mental status. Patient is a poor historian, not participating in conversation. [facility] was contacted and the facility mentioned that earlier in the day of presentation the patient had a change in her condition, was altered, and was crawling out of bed onto the floor. It was reported that the family requested that she be evaluated in the ED. Facility reported that patient is a new resident, arriving at the facility on 11/15/2025, at that on intake she was oriented only to self. On arrival the patient's vitals were stable. There were no significant labs. Head CT was negative, CT chest abdomen pelvis showed thyroid nodules, mildly thickened gallbladder. Patient had no leukocytosis and was afebrile with no lactic acidosis. Patient was admitted to observation for acute encephalopathy. ED Course: * Significant vitals on arrival: Vitals within normal parameters on arrival. * Significant labs: Alk phos 124, otherwise no significant labs. * Imaging: Chest x-ray showed moderately enlarged left ventricle, no pneumonia or pulmonary edema, head CT was negative for hemorrhage or mass effect, CT chest abdomen pelvis showed large thyroid nodules, thoracic aorta calcification, mild to moderate enlargement of left ventricle, mildly thickened gallbladder wall, splenic calcifications * ED intervention: Patient received 1 L of LR and 1 mg IV push of lorazepam. History: (Mostly gathered from chart review) * Past medical history: As above in HPI * Surgical history: Patient denied any surgical history * Social history: Patient denied alcohol tobacco or drug use. Mentioned that she lives at home. Allergies: * No known drug allergies Home Medications: (Pending med rec, meds in position of patient at bedside) * Furosemide 20 mg daily. * Amlodipine 5 mg daily. * Benzepril 20 mg daily. * Bupropion 300 mg daily. * Simvastatin 10 mg nightly. * Esomeprazole 40 mg daily. CODE STATUS: DNR/DNI Review of Systems Review of Systems Narrative Review of Systems: Review of systems unable to be obtained due to the patient's mental status. Exam Vital Signs Temp Pulse Resp BP Pulse Ox O2 Del Method 98.6 F 81 16 171/91 H 97 Room Air 11/16/25 00:06 11/16/25 02:53 11/16/25 02:53 11/16/25 03:09 11/16/25 02:53 11/16/25 02:53 Narrative Exam General: Frail elderly lady. Confused, one-word answers, mumbling. Neurologic: GCS 11: Opens eyes to pain (+2), appropriate words (+3), obeys commands (+6). Oriented to self and place and time (consider that the patient may have memorized these answers after being asked multiple times during the day). No gross neurological deficit, and patient able to move all 4 extremities. HEENT: Normocephalic, atraumatic, mucous membranes moist. Pupils reactive to light. Heart: Regular rate. Grade 2 out of 6 systolic ejection murmur left sternal border. Lungs: Clear to auscultation bilaterally with no wheezing or crackles. Abdomen: Soft, nondistended, nontender, positive bowel sounds. No guarding or rebound tenderness. Extremities: No edema. 2+ radial and dorsalis pedis pulses bilaterally. Skin: Warm. Dry. No rash or ecchymoses. Results: Labs 11/15/25 18:55 11/15/25 18:55 Labs: Short CBC 11/15/25 Range/Units 18:55 WBC 6.5 (3.6-11.0) Thou/mm3 Hgb 13.3 (12.0-16.0) g/dL Hct 40.1 (36.0-46.0) % Plt Count 356 D (140-440) Thou/mm3 BMP 11/15/25 18:55 Sodium 142 Potassium 3.9 Chloride 108 H Carbon Dioxide 25.5 BUN 11 Creatinine 0.7 Glucose 92 Calcium 9.1 Cardiac Enzymes 11/15/25 Range/Units 18:55 Troponin I < 0.020 (0.0-0.045) ng/mL Liver Function 11/15/25 Range/Units 18:55 Total Bilirubin 0.6 (0.3-1.2) mg/dL AST 27 (0-34) U/L ALT 13 (10-49) U/L Alkaline Phosphatase 124 H (46-116) U/L Albumin 3.9 (3.4-4.8) gm/dL Urine 11/15/25 Range/Units 20:38 Urine Color Lt-Yellow (Lt Yel-Yel) Urine Clarity Clear (Clear/Hazy) Urine pH 6.0 (5.0-7.0) Ur Specific [place] 1.007 (1.001-1.035) Urine Protein Negative (Neg - Trace) Urine Glucose (UA) Negative (Negative) Quality Measures Quality Measures none Advance care planning discussed with:: other (Patient's Facility [facility]) Medications Home Medications and Allergies Home Medications ?Medication ?Instructions ?Recorded ?Confirmed ?Type amlodipine 5 mg tablet 5 mg PO QDAY 11/04/25 History benazepril 20 mg tablet 20 mg PO QDAY 11/04/2511/04 History bupropion HCl 300 mg 24 hr tablet, 300 mg PO QDAY 07/2211/04/25 History extended release esomeprazole magnesium 40 mg 40 mg PO Q24H 11/04/25 History capsule,delayed release furosemide 20 mg tablet 20 mg PO QDAY 11/04/2511/04 History simvastatin 10 mg tablet 10 mg PO HS 11/04/25 5 History Allergies Allergy/AdvReac Type Severity Reaction Status Date / Time No Known Allergies Allergy Verified 11/15/25 18:50 Visit Medications Acetaminophen (Acetaminophen 325 Mg Tablet) 650 mg PO Q6H PRN PRN Reason: Fever >100.4 Stop: 12/16/25 03:11 Olanzapine (Olanzapine 2.5 Mg Tablet) 5 mg PO Q6HR PRN PRN Reason: AGITATION Stop: 12/16/25 03:11 Discontinued Medications Lactated Ringer's (Lactated Ringers) 1,000 mls @ 999 mls/hr IV .Q1H1M ONE Stop: 11/15/25 19:46 Last Infusion: 11/15/25 20:47 Dose: Infused Lorazepam (Lorazepam 2 Mg/Ml Vial) 1 mg IVP X1 ONE Stop: 11/15/25 21:53 Last Admin: 11/15/25 22:23 Dose: 1 mg Assessment & Plan Plan Summary: 85-year-old female past medical history of hypertension, advanced arthritis with kyphoscoliosis requiring assistance for transfer who presented to the ED in the evening of 11/15/2025 from [facility] after caregiver noticed a change in the patient's mental status. Patient is a poor historian, not participating in conversation. [facility] was contacted and the facility mentions that earlier in the day of presentation the patient had a change in her condition, was altered, and crawling out of bed onto the floor. On arrival the patient's vitals were stable. There were no significant labs. Head CT was negative, CT chest abdomen pelvis showed thyroid nodules, mildly thickened gallbladder. Patient had no leukocytosis and was afebrile. Patient was admitted to observation for acute encephalopathy. #Acute Encephalopathy secondary to #Alzheimer's? #Dementia? * Oriented to self and place and time (consider that the patient may have memorized these answers after being asked multiple times during the day) * Patient presented from [facility] after it was reported that the patient was crawling out of bed onto the floor * It was also reported that the patient was pulling IV lines in the ED * Patient is a new resident at [facility], [facility] facility on 11/07/2025. It was reported at that time that the patient was only oriented to self. * Given the limited data and after speaking with the patient's facility, the patient's baseline is likely alert and oriented only to self. * Patient had a blood culture on 11/05/2025, no growth after 5 days, urinalysis was negative for infection on presentation, there was no white blood cell count, patient was afebrile, no there was concern for infectious etiology * Consider acute encephalopathy secondary to undiagnosed Alzheimer's versus dementia * Patient received 1 mg IV push lorazepam in the ED due to line pulling, also had a one-on-one sitter Plan: * Admitted to observation * Olanzapine 5 mg p.o. every 6 hours as needed for agitation # Hypertension stage II * BP 171/91 on admission * Per chart review patient takes amlodipine 5 mg daily at home Plan: * Pending med rec, consider restarting home medications * As needed hydralazine 10 mg IV every 4 hours as needed for SBP over 175. #Advanced arthritis with kyphoscoliosis * Per chart review of patient's history Plan: * No direct intervention at this time #Hyperlipidemia? * Patient appears to be taking simvastatin at home, pill bottle present at bedside * No cholesterol panel upon chart review Plan: * Pending med rec * Consider ordering cholesterol panel and restarting home statin #Depression? * Patient taking bupropion 300 mg Plan: * Pending med rec * Consider restarting home medications Hospital Maintenance: DVT ppx: SCDs Diet: N.p.o., pending nurse swallow screen IV lines: Peripheral IVs Code status: DNR/DNI Dispo: Admitted to observation for altered mental status. As needed olanzapine for agitation. Patient was seen and discussed with my attending physician Dr. Theron TELLEZ and my senior resident Dr. Aron HERNANDEZ PGY-2. Vern Sue DO PGY-1.
[2025-11-16 04:53] LABS: Basophils # (Auto) 0.1 Thou/mm3 (0.0-0.2); Basophils % (Auto) 1 % (0-2.5); Eosinophils # (Auto) 0.2 Thou/mm3 (0.0-0.5); Eosinophils % (Auto) 3 % (0-10); Hematocrit 39.1 % (36.0-46.0); Hemoglobin 13.1 g/dL (12.0-16.0); Immature Granulocytes Auto 0.02 Thou/mm3 (0.00-0.00); Lymphocytes # (Auto) 1.1 Thou/mm3 (1.0-4.8); Lymphocytes % (Auto) 14 % (10-50); Mean Corpuscular HGB Conc 33.5 g/dl (31.0-37.0); Mean Corpuscular Hemoglobin 31.0 pg (25.0-35.0); Mean Corpuscular Volume 93 fL (80-100); Monocytes # (Auto) 0.7 Thou/mm3 (0.0-0.8); Monocytes % (Auto) 10 % (0-12); Neutrophils # (Auto) 5.5 Thou/mm3 (1.8-7.7); Neutrophils % (Auto) 73 % (37-80); Nucleated Red Blood Cell # 0.00 Thou/mm3 (0.00-0.00); Nucleated Red Blood Cell % 0 /100 WBC (0); Platelet Count 378 Thou/mm3 (140-440); RDW Standard Deviation 47.1 fL (36.4-46.3); Red Blood Count 4.22 Miln/mm3 (4.00-5.20); White Blood Count 7.5 Thou/mm3 (3.6-11.0)
[2025-11-16 05:11] LABS: Alanine Aminotransferase 12 U/L (10-49); Albumin, Serum 4.0 gm/dL (3.4-4.8); Albumin/Globulin Ratio 1.6 (1.2-2.2); Alkaline Phosphatase 130 U/L (46-116); Anion Gap 12 (7-16); Aspartate Amino Transferase 29 U/L (0-34); BUN/Creatinine Ratio 13 Ratio (12-20); Bilirubin,Total 0.6 mg/dL (0.3-1.2); Blood Urea Nitrogen 8 mg/dL (9-23); Calcium 9.1 mg/dL (8.3-10.6); Calcium (Corrected) 9.1 mg/dL (8.5-10.1); Carbon Dioxide 23.8 mMol/L (20.0-31.0); Chloride 106 mMol/L (98-107); Creatinine (Component) 0.6 mg/dL (0.6-1.3); Estimated Creatinine Clearance 67.4 mL/min (>60); Globulin 2.5 gm/dL (2.3-3.5); Glucose 87 mg/dL (74-106); Osmolality,Calculated 280 (275-295); Potassium 3.8 mMol/L (3.4-5.1); Sodium 142 mMol/L (136-145); Total Protein 6.5 gm/dL (5.7-8.2); eGFR > 60 See Note
[2025-11-16] MEDS: RINGERS LACTATED 1000 ML 1,000 ML 100 ML IV (06:25)
[2025-11-16 06:33] LABS: Lactate (Lactic Acid) 0.9 mMol/L (0.4-2.0)
[2025-11-16 09:27] LABS: Thyroid Stimulating Hormone 2.35 uIU/mL (0.55-4.78)
--- NOTE | 2025-11-16 11:20 | PC.NURSE ---
per speech therapist. pt passed her swallow evaluation. she states she will put in diet for pt.
[2025-11-16] MEDS: SENNA/DOCUSATE SOD 1 TAB TABLET PO (12:25)
[2025-11-16] MEDS: POLYETHYLENE GLYCOL 17 GM PACKET PO (12:27)
--- NOTE | 2025-11-16 12:30 | PC.NURSE ---
lunch tray provided. pt refused at this time stating that she was not hungry
--- NOTE | 2025-11-16 13:50 | ESPR_ITS ---
<Statement entered by Bartolome Dougherty MD - 11/16/25 15:47> In summary, patient is 85-year-old female with hx of HTN, arthritis and kyphoscoliosis. Patient was recently placed in rehab [facility] after a fall and brought in for acute mental status change. No source of infection, patient passed swallow eval, started on diet + Ensure. Blood pressure controlled with Lisinopril, amlodipine held off due to swelling of lower extremities. Abdominal imaging did indicate stool throughout, will give regimen. I discussed with and supervised the planner internship physician involved in the care of this patient. Patient assessment and plan was discussed with entire medicine team, including my attending. I agree with the assessment and plan as documented by planner internship doctor. Patient care was discussed with my attending physician Dr. Bjorn Dougherty, PGY-3 Documentation for date of: 11/16/25 Subjective Subjective Interval history: Patient seen at bedside this morning. Patient provides limited responses, intermittently answers questions, and is unable to state the current year. Denies pain when asked. No acute distress noted. No fevers, chills, chest pain, dyspnea, nausea, vomiting, or urinary symptoms reported. Collateral history obtained from patient?s brother at bedside: -Patient was at her cognitive baseline until the afternoon prior to admission -Was reportedly doing well in rehab, participating in therapy appropriately -On the afternoon prior to admission, had abrupt mental status change, talking about relatives from decades ago and appearing ?out of it? -No known history of dementia or Alzheimer?s disease -Recent history notable for mechanical fall at home, prompting rehab placement due to mobility issues -Family notes poor oral intake and decreased hydration recently Exam Vital Signs Temp Pulse Resp BP Pulse Ox O2 Del Method 98.2 F 67 18 145/76 H 99 Room Air 11/16/25 12:06 11/16/25 12:06 11/16/25 12:06 11/16/25 12:06 11/16/25 12:06 11/16/25 12:06 Narrative Exam General: Frail elderly lady. Confused, one-word answers, mumbling. Neurologic: Oriented to self and place and time. No gross neurological deficit, and patient able to move all 4 extremities. HEENT: Normocephalic, atraumatic, mucous membranes moist. Pupils reactive to light. Heart: Regular rate. regular rhythm. Lungs: Clear to auscultation bilaterally with no wheezing or crackles. Abdomen: Soft, nondistended, nontender, positive bowel sounds. No guarding or rebound tenderness. Extremities: No edema. 2+ radial and dorsalis pedis pulses bilaterally. Skin: Warm. Dry. No rash or ecchymoses. Objective Labs 11/16/25 04:46 11/16/25 04:46 Labs: Laboratory Results - last 24 hr 11/15/25 11/15/25 11/16/25 18:55 20:38 04:46 WBC 6.5 7.5 RBC 4.28 4.22 Hgb 13.3 13.1 Hct 40.1 39.1 MCV 94 93 MCH 31.1 31.0 MCHC 33.2 33.5 RDW Std Deviation 48.5 H 47.1 H Plt Count 356 D 378 Neut % (Auto) 66 73 Lymph % (Auto) 18 14 [place] % (Auto) 9 10 Eos % (Auto) 5 3 Baso % (Auto) 1 1 Neut # (Auto) 4.3 5.5 Lymph # (Auto) 1.2 1.1 [place] # (Auto) 0.6 0.7 Eos # (Auto) 0.3 0.2 Baso # (Auto) 0.1 0.1 Immature Gran # (Auto) 0.02 H 0.02 H Absolute Nucleated RBC 0.00 0.00 Immature Gran % 0 0 Nucleated RBC % 0 0 APTT 32.1 Sodium 142 142 Potassium 3.9 3.8 Chloride 108 H 106 Carbon Dioxide 25.5 23.8 Anion Gap 9 12 BUN 11 8 L Creatinine 0.7 0.6 Estim Creat Clear Calc 57.7 L 67.4 eGFR > 60 > 60 BUN/Creatinine Ratio 16 13 Glucose 92 87 Calculated Osmolality 282 280 Lactic Acid Calcium 9.1 9.1 Corrected Calcium 9.2 9.1 Total Bilirubin 0.6 0.6 AST 27 29 ALT 13 12 Alkaline Phosphatase 124 H 130 H Troponin I < 0.020 Total Protein 6.4 6.5 Albumin 3.9 4.0 Globulin 2.5 2.5 Albumin/Globulin Ratio 1.6 1.6 TSH 2.35 Ur Collection Type Clean Catch Urine Color Lt-Yellow Urine Clarity Clear Urine pH 6.0 Ur Specific [place] 1.007 Urine Protein Negative Urine Glucose (UA) Negative Urine Ketones Negative Urine Blood Negative Urine Nitrite Negative Urine Bilirubin Negative Urine Urobilinogen (Auto) Negative Ur Leukocyte Esterase Negative Urine RBC < 1 Urine WBC 0 Ur Squamous Epith Cells 1 Urine Bacteria None Ur Culture Indicated? Not Indicated 11/16/25 06:21 WBC RBC Hgb Hct MCV MCH MCHC RDW Std Deviation Plt Count Neut % (Auto) Lymph % (Auto) [place] % (Auto) Eos % (Auto) Baso % (Auto) Neut # (Auto) Lymph # (Auto) [place] # (Auto) Eos # (Auto) Baso # (Auto) Immature Gran # (Auto) Absolute Nucleated RBC Immature Gran % Nucleated RBC % APTT Sodium Potassium Chloride Carbon Dioxide Anion Gap BUN Creatinine Estim Creat Clear Calc eGFR BUN/Creatinine Ratio Glucose Calculated Osmolality Lactic Acid 0.9 Calcium Corrected Calcium Total Bilirubin AST ALT Alkaline Phosphatase Troponin I Total Protein Albumin Globulin Albumin/Globulin Ratio TSH Ur Collection Type Urine Color Urine Clarity Urine pH Ur Specific [place] Urine Protein Urine Glucose (UA) Urine Ketones Urine Blood Urine Nitrite Urine Bilirubin Urine Urobilinogen (Auto) Ur Leukocyte Esterase Urine RBC Urine WBC Ur Squamous Epith Cells Urine Bacteria Ur Culture Indicated? Quality Measures Quality Measures VTE prophylaxis Advance care planning discussed with:: patient and sibling Assessment & Plan Assessment Current Active Medications: Generic Name Dose Route Start Last Admin Trade Name Freq PRN Reason Stop Dose Admin Acetaminophen 650 mg 11/16/25 03:12 Acetaminophen 325 Mg Tablet PO 12/16/25 03:11 Q6H PRN Fever >100.4 Atorvastatin Calcium 10 mg 11/16/25 21:00 Atorvastatin Calcium 10 Mg Tablet PO 12/16/25 20:59 HS DAVID Hydralazine HCl 10 mg 11/16/25 03:18 Hydralazine Inj 20 Mg/Ml Vial IV 12/16/25 03:17 Q4HR PRN Blood Pressure Lisinopril 20 mg 11/16/25 11:00 11/16/25 11:32 Lisinopril 20 Mg Tablet PO 12/16/25 10:59 20 mg QDAY DAVID Administration Olanzapine 5 mg 11/16/25 03:12 Olanzapine 2.5 Mg Tablet PO 12/16/25 03:11 Q6HR PRN AGITATION Sennosides 1 tab 11/16/25 11:00 11/16/25 12:25 Senna/Docusate Sod 1 Tab Tablet PO 12/16/25 10:59 1 tab QDAY DAVID Administration Protocol Plan 85-year-old female with history of hypertension and advanced arthritis with kyphoscoliosis, recently placed in rehab after a fall, admitted from [facility] for acute change in mental status, now hemodynamically stable with non-infectious workup negative, concerning for acute encephalopathy likely delirium vs early dementia. # Acute Encephalopathy # Delirium likely multifactorial Acute, subacute mental status change with family-confirmed normal cognition days prior? Infectious and metabolic workup negative. Acute delirium likely triggered by dehydration, constipation, and environmental change. Family reports abrupt decline, inconsistent with longstanding dementia No leukocytosis, no lactic acidosis, UA negative, afebrile Head CT negative Alzheimer?s or chronic dementia less likely given acuity, but cannot be fully excluded Plan: * Continue close mental status monitoring * Encourage oral hydration * Maintain calm environment, minimize nighttime disruptions * Avoid benzos * Olanzapine 5 mg PO q6h PRN agitation * One-to-one sitter as needed * Reassess cognition daily and discuss baseline further with family * Treat underlying contributors * Ensure adequate bowel regimen * Re-orient patient frequently * Avoid restraints if possible # Constipation / Possible Proctitis Imaging shows abundant rectal stool burden with rectal wall thickening. Plan: * Start bowel regimen (senna + polyethylene glycol) * Monitor bowel movements * No antibiotics indicated at this time # Hypertension Chronic hypertension, mildly elevated on admission. Plan: * Restart home benazepril 20 mg qday. * Hydralazine IV PRN for SBP >175 * Hold home med amlodipine due to LE edema. # Thyroid Nodules Incidental thyroid nodules on CT, TSH normal. Plan: * No inpatient intervention * Recommend outpatient thyroid ultrasound # Advanced Arthritis with Kyphoscoliosis Chronic mobility limitation requiring rehab placement. Plan: * Physical therapy evaluation * Fall precautions # Hyperlipidemia On simvastatin at home per pill bottles. Plan: * Resume home statin after medication reconciliation # Depression On bupropion chronically per history. Plan: * Resume home bupropion once med rec confirmed Health Maintenance: DVT prophylaxis: SCDs Diet: Regular after passed swallow study. IV access: Peripheral IV Code Status: Changed to Full code per POLST form but no artificial means of nutrition. Disposition: Observation; anticipate return to facility once mental status stabilizes ----- Plan discussed with attending physician Dr. Bjorn Sutton MD PGY-1 Internal Medicine Attending Provider Attestation/Addendum I, Eli Milan, DO, attest that I was physically present for the castrejon portions of the service and evaluated the patient with the resident and I reviewed and discussed the case with the resident and agree with the resident's findings and plans of care as documented above Patient seen and evaluated this AM. Patient is A&Ox2. No family at bedside. Patient reports that she has not been eating well due to lack of appetite. She denies any chest pain, shortness of breath, fevers, chills or dysuria. Patient was calm and reported feeling fatigued. Will have speech therapy do swallow evaluation to advance diet. Will stop IV fluids if patient is able to tolerate PO intake. If patient is not back at baseline in AM, will consider neuro consult. Will restart home meds due to uncontrolled BP.
--- NOTE | 2025-11-16 14:47 | PC.NURSE ---
report given to Bronwyn on med/surg floor. pt to go to room 378
[2025-11-16] MEDS: ATORVASTATIN CALCIUM 10 MG TABLET 5 MG PO (20:36)
[2025-11-17] VITALS (8 sets, daily range): BP systolic 115–145; BP diastolic 65–81; PULSE 62–77; RESP 16–94; TEMP 36–36.5; O2SAT 92–98; BMI 12.0
[2025-11-17 06:04] LABS: Basophils # (Auto) 0.1 Thou/mm3 (0.0-0.2); Basophils % (Auto) 2 % (0-2.5); Eosinophils # (Auto) 0.3 Thou/mm3 (0.0-0.5); Eosinophils % (Auto) 6 % (0-10); Hematocrit 34.1 % (36.0-46.0); Hemoglobin 11.4 g/dL (12.0-16.0); Immature Granulocytes Auto 0.01 Thou/mm3 (0.00-0.00); Lymphocytes # (Auto) 1.1 Thou/mm3 (1.0-4.8); Lymphocytes % (Auto) 20 % (10-50); Mean Corpuscular HGB Conc 33.4 g/dl (31.0-37.0); Mean Corpuscular Hemoglobin 31.3 pg (25.0-35.0); Mean Corpuscular Volume 94 fL (80-100); Monocytes # (Auto) 0.7 Thou/mm3 (0.0-0.8); Monocytes % (Auto) 12 % (0-12); Neutrophils # (Auto) 3.3 Thou/mm3 (1.8-7.7); Neutrophils % (Auto) 60 % (37-80); Nucleated Red Blood Cell # 0.00 Thou/mm3 (0.00-0.00); Nucleated Red Blood Cell % 0 /100 WBC (0); Platelet Count 331 Thou/mm3 (140-440); RDW Standard Deviation 46.7 fL (36.4-46.3); Red Blood Count 3.64 Miln/mm3 (4.00-5.20); White Blood Count 5.6 Thou/mm3 (3.6-11.0)
[2025-11-17 07:57] LABS: Alanine Aminotransferase 10 U/L (10-49); Albumin, Serum 3.3 gm/dL (3.4-4.8); Albumin/Globulin Ratio 1.5 (1.2-2.2); Alkaline Phosphatase 110 U/L (46-116); Anion Gap 12 (7-16); Aspartate Amino Transferase 25 U/L (0-34); BUN/Creatinine Ratio 12 Ratio (12-20); Bilirubin,Total 0.6 mg/dL (0.3-1.2); Blood Urea Nitrogen 7 mg/dL (9-23); Calcium 8.8 mg/dL (8.3-10.6); Calcium (Corrected) 9.4 mg/dL (8.5-10.1); Carbon Dioxide 23.7 mMol/L (20.0-31.0); Chloride 105 mMol/L (98-107); Creatinine (Component) 0.6 mg/dL (0.6-1.3); Estimated Creatinine Clearance 67.4 mL/min (>60); Globulin 2.2 gm/dL (2.3-3.5); Glucose 76 mg/dL (74-106); Magnesium 1.7 mg/dL (1.6-2.6); Osmolality,Calculated 278 (275-295); Phosphorous 3.1 mg/dL (2.4-5.1); Potassium 4.0 mMol/L (3.4-5.1); Sodium 141 mMol/L (136-145); Total Protein 5.5 gm/dL (5.7-8.2); eGFR > 60 See Note
[2025-11-17] MEDS: BuPROPion HCL XL 150 MG TABCR 300 MG PO (10:02)
[2025-11-17] MEDS: SENNA/DOCUSATE SOD 1 TAB TABLET PO (10:02)
--- NOTE | 2025-11-17 10:17 | PC.NURSE ---
Notified Dr Padilla of patient having a bowel movement which was pending prior to discharge. was instructed to hold miralax and glycerin suppository
--- NOTE | 2025-11-17 10:21 | ESPR_ITS ---
<Statement entered by Chavez Ibarra MD - 11/22/25 08:34> I reviewed above note and agree with findings and plans. I have also personally examined the patient with medicine team and went over assessment and plan with medical team including technology risk intern and resident physician. <Statement entered by Bartolome Dougherty MD - 11/18/25 16:08> No significant overnight events. Patient doing much better than yesterday, cognition niño. Patient had bowel movement with regimen later in the afternoon. Anticipating discharge back to SNF if she continues to be stable. I discussed with and supervised the technology risk intern physician involved in the care of this patient. Patient assessment and plan was discussed with entire medicine team, including my attending. I agree with the assessment and plan as documented by technology risk intern doctor. Patient care was discussed with my attending physician Dr. Stacey Dougherty, PGY-3 Documentation for date of: 11/17/25 Subjective Subjective Interval history: Patient seen this morning. She appears more alert compared to prior days. She is alert to self, place, and year. No overnight events reported. Denies pain or other complaints. Ate breakfast without difficulty. No bowel movement yet; received one-time glycerin suppository and milk of mag this morning. Overall answering questions appropriately, though responses remain slightly slowed. Patient had a BM in the afternoon, will plan to DC tomorrow morning. Exam Vital Signs Temp Pulse Resp BP Pulse Ox O2 Del Method 97.0 F 62 16 128/65 95 Room Air 11/17/25 08:00 11/17/25 10:02 11/17/25 08:00 11/17/25 10:02 11/17/25 08:00 11/17/25 08:00 Narrative Exam General: Awake, calm, cooperative Neurologic: Alert, oriented ?3, slow but appropriate responses, no focal deficits Cardiac: Regular rate and rhythm Pulmonary: Clear to auscultation bilaterally Abdomen: Soft, non-tender, non-distended Extremities: No edema Objective Labs 11/17/25 05:17 11/17/25 05:17 Labs: Laboratory Results - last 24 hr 11/17/25 05:17 WBC 5.6 RBC 3.64 L Hgb 11.4 L Hct 34.1 L MCV 94 MCH 31.3 MCHC 33.4 RDW Std Deviation 46.7 H Plt Count 331 D Neut % (Auto) 60 Lymph % (Auto) 20 [place] % (Auto) 12 Eos % (Auto) 6 Baso % (Auto) 2 Neut # (Auto) 3.3 Lymph # (Auto) 1.1 [place] # (Auto) 0.7 Eos # (Auto) 0.3 Baso # (Auto) 0.1 Immature Gran # (Auto) 0.01 H Absolute Nucleated RBC 0.00 Immature Gran % 0 Nucleated RBC % 0 Sodium 141 Potassium 4.0 Chloride 105 Carbon Dioxide 23.7 Anion Gap 12 BUN 7 L Creatinine 0.6 Estim Creat Clear Calc 67.4 eGFR > 60 BUN/Creatinine Ratio 12 Glucose 76 Calculated Osmolality 278 Calcium 8.8 Corrected Calcium 9.4 Phosphorus 3.1 Magnesium 1.7 Total Bilirubin 0.6 AST 25 ALT 10 Alkaline Phosphatase 110 D Total Protein 5.5 L Albumin 3.3 L D Globulin 2.2 L Albumin/Globulin Ratio 1.5 Quality Measures Quality Measures VTE prophylaxis Advance care planning discussed with:: patient Assessment & Plan Assessment Current Active Medications: Generic Name Dose Route Start Last Admin Trade Name Freq PRN Reason Stop Dose Admin Acetaminophen 650 mg 11/16/25 03:12 Acetaminophen 325 Mg Tablet PO 12/16/25 03:11 Q6H PRN Fever >100.4 Atorvastatin Calcium 5 mg 11/16/25 21:00 11/16/25 20:36 Atorvastatin Calcium 10 Mg Tablet PO 12/16/25 20:59 5 mg HS DAVID Administration Protocol Bupropion HCl 300 mg 11/17/25 09:00 11/17/25 10:02 Bupropion Hcl Xl 150 Mg Tabcr PO 12/17/25 08:59 300 mg QDAY DAVID Administration Hydralazine HCl 10 mg 11/16/25 03:18 Hydralazine Inj 20 Mg/Ml Vial IV 12/16/25 03:17 Q4HR PRN Blood Pressure Lisinopril 20 mg 11/17/25 09:00 11/17/25 10:02 Lisinopril 20 Mg Tablet PO 12/17/25 08:59 20 mg QDAY DAVID Administration Olanzapine 5 mg 11/16/25 03:12 Olanzapine 2.5 Mg Tablet PO 12/16/25 03:11 Q6HR PRN AGITATION Sennosides 1 tab 11/16/25 11:00 11/17/25 10:02 Senna/Docusate Sod 1 Tab Tablet PO 12/16/25 10:59 1 tab QDAY DAVID Administration Protocol Plan 85-year-old female with history of hypertension and advanced arthritis with kyphoscoliosis, admitted from [facility] for acute encephalopathy, now clinically improving with near-baseline mental status, stable labs, and nearing discharge pending bowel movement. # Acute Encephalopathy # Delirium likely multifactorial Acute, subacute mental status change with family-confirmed normal cognition days prior? Infectious and metabolic workup negative. Acute delirium likely triggered by dehydration, constipation, and environmental change. Family reports abrupt decline, inconsistent with longstanding dementia No leukocytosis, no lactic acidosis, UA negative, afebrile Head CT negative Alzheimer?s or chronic dementia less likely given acuity, but cannot be fully excluded 11/17: Acute delirium with significant improvement and return toward baseline mental status. Pending BM then dc tomorrow. Plan: * Continue close mental status monitoring * Encourage oral hydration * Maintain calm environment, minimize nighttime disruptions * Avoid benzos * Olanzapine 5 mg PO q6h PRN agitation * Reassess cognition daily and discuss baseline further with family * Treat underlying contributors * Ensure adequate bowel regimen * Re-orient patient frequently * Avoid restraints if possible # Constipation / Possible Proctitis Imaging shows abundant rectal stool burden with rectal wall thickening.. No bowel movement yet, likely contributing to prior delirium. In the afternoon patient had a BM so will DC tomorrow Plan: * Start bowel regimen (senna + polyethylene glycol) * One-time glycerin suppository and milk of mag given * If BM achieved and patient remains stable, okay for discharge # Hypertension Chronic hypertension, mildly elevated on admission. Plan: * Continue lisinopril 20 mg qday. * Hydralazine IV PRN for SBP >175 * Hold home med amlodipine due to LE edema. # Thyroid Nodules Incidental thyroid nodules on CT, TSH normal. Plan: * No inpatient intervention * Recommend outpatient thyroid ultrasound # Advanced Arthritis with Kyphoscoliosis Chronic mobility limitation requiring rehab placement. Plan: * Physical therapy evaluation * Fall precautions # Hyperlipidemia On simvastatin at home per pill bottles. Plan: * Resume home statin # Depression On bupropion chronically per history. Plan: * Resume home bupropion Health Maintenance: DVT prophylaxis: SCDs Diet: Regular IV access: Peripheral IV Code Status: Changed to Full code per POLST form but no artificial means of nutrition. Disposition: Observation; dc tomorrow ----- Plan discussed with attending physician Dr. Ibarra and senior resident Dr. Farhat Sutton MD PGY-1 Internal Medicine
[2025-11-17 12:54] LABS: Cardiac Risk Estimate 3.0 RATIO (3.7-5.6); Cholesterol 125 mg/dL (132-200); HDL Cholesterol 42 mg/dL (40-60); LDL Cholesterol,Calculated 68 mg/dL (0-130); Triglycerides 77 mg/dL (30-150)
--- NOTE | 2025-11-17 15:43 | PC.SS ---
Addendum entered by Moira Espino 11/17/25 15:47: Rounding note: Pending BM, will discharge 11/18/25 if BM occurs. Returning to [facility] when medically clear. Transportation needed. Original Note: 85YO White Female; Reason for Visit: [facility] contacted patient?s sibling Dheeraj Lim [phone] to complete initial assessment due to Progress Note indicating patient having difficulty providing information. Role and purpose of today?s contact explained to patient?s sibling Dheeraj Lim. Dheeraj confirmed patient?s demographic information. Sibling Dheeraj Lim is patient?s primary medical surrogate decisionmaker. ?Patient lives with sibling Eber Lim. Patient requires assistance with ADL completion and is assisted by her siblings. Patient utilizes a Rollator walker to ambulate. ?Per Dheeraj, patient to return to [facility] when medically clear, transportation will be needed. PHARMACY: [facility]. PCP Manpreet London. DISCHARGE PLAN: [facility] NEXT OF KIN: Sibling Dheeraj Lim [phone].
[2025-11-17] MEDS: ATORVASTATIN CALCIUM 10 MG TABLET 5 MG PO (22:17)
[2025-11-18] VITALS: BP 148/78; PULSE 66; RESP 16; TEMP 36; O2SAT 95
[2025-11-18 04:00] VITALS: BP 155/78; PULSE 66; RESP 16; TEMP 36.5; O2SAT 96
[2025-11-18 06:21] LABS: Alanine Aminotransferase 10 U/L (10-49); Albumin, Serum 3.1 gm/dL (3.4-4.8); Albumin/Globulin Ratio 1.4 (1.2-2.2); Alkaline Phosphatase 109 U/L (46-116); Anion Gap 9 (7-16); Aspartate Amino Transferase 22 U/L (0-34); BUN/Creatinine Ratio 17 Ratio (12-20); Basophils # (Auto) 0.1 Thou/mm3 (0.0-0.2); Basophils % (Auto) 2 % (0-2.5); Bilirubin,Total 0.5 mg/dL (0.3-1.2); Blood Urea Nitrogen 12 mg/dL (9-23); Calcium 8.7 mg/dL (8.3-10.6); Calcium (Corrected) 9.4 mg/dL (8.5-10.1); Carbon Dioxide 25.6 mMol/L (20.0-31.0); Chloride 105 mMol/L (98-107); Creatinine (Component) 0.7 mg/dL (0.6-1.3); Eosinophils # (Auto) 0.5 Thou/mm3 (0.0-0.5); Eosinophils % (Auto) 9 % (0-10); Estimated Creatinine Clearance 57.7 mL/min (>60); Globulin 2.2 gm/dL (2.3-3.5); Glucose 82 mg/dL (74-106); Hematocrit 33.8 % (36.0-46.0); Hemoglobin 11.1 g/dL (12.0-16.0); Immature Granulocytes Auto 0.02 Thou/mm3 (0.00-0.00); Lymphocytes # (Auto) 1.3 Thou/mm3 (1.0-4.8); Lymphocytes % (Auto) 24 % (10-50); Magnesium 1.8 mg/dL (1.6-2.6); Mean Corpuscular HGB Conc 32.8 g/dl (31.0-37.0); Mean Corpuscular Hemoglobin 30.6 pg (25.0-35.0); Mean Corpuscular Volume 93 fL (80-100); Monocytes # (Auto) 0.6 Thou/mm3 (0.0-0.8); Monocytes % (Auto) 12 % (0-12); Neutrophils # (Auto) 2.8 Thou/mm3 (1.8-7.7); Neutrophils % (Auto) 53 % (37-80); Nucleated Red Blood Cell # 0.00 Thou/mm3 (0.00-0.00); Nucleated Red Blood Cell % 0 /100 WBC (0); Osmolality,Calculated 278 (275-295); Phosphorous 3.2 mg/dL (2.4-5.1); Platelet Count 345 Thou/mm3 (140-440); Potassium 3.8 mMol/L (3.4-5.1); RDW Standard Deviation 47.4 fL (36.4-46.3); Red Blood Count 3.63 Miln/mm3 (4.00-5.20); Sodium 140 mMol/L (136-145); Total Protein 5.3 gm/dL (5.7-8.2); White Blood Count 5.3 Thou/mm3 (3.6-11.0); eGFR > 60 See Note
[2025-11-18 08:00] VITALS: BP 126/71; PULSE 58; RESP 17; TEMP 36.3; O2SAT 96
[2025-11-18 08:12] VITALS: PULSE 67; RESP 20; RESP 97
--- NOTE | 2025-11-18 08:54 | ESDS_ITS ---
<Statement entered by Chavez Ibarra MD - 11/22/25 08:34> I reviewed above note and agree with findings and plans. I have also personally examined the patient with medicine team and went over assessment and plan with medical team including sports intern and resident physician. Planned Discharge Date 11/18/25 DS: Providers Provider Date of admission: 11/17/25 14:22 Primary care physician: Physician No Primary/Family Admitting Provider: Dino Crump DO Attending Provider on Admission: Chavez Ibarra MD Consults: 11/16/25 10:50 Referral Speech Therapy Routine Comment: 11/16/25 10:52 PT [Referral Physical Therapy] Routine Comment: Physician Instructions: 11/16/25 15:25 [facility] Referral - Knowledge Deficit Routine Comment: Positive screening for knowledge deficit needs. [facility] Referral - Transportation Routine Comment: Positive screening for transportation needs. Attending Provider on DC: Chavez Ibarra MD Discharging Provider: Trista Sutton MD DS: Diagnosis Problem List Completed Was Problem List Reviewed/Reconciled?: Yes Hospital Course Hospital Course Hospital course: 85-year-old female with a past medical history of hypertension and advanced arthritis with kyphoscoliosis, who was admitted from [facility] for acute change in mental status. Per family, the patient had been cognitively inta ct at baseline and was participating appropriately in rehabilitation therapy after a recent mechanical fall. On the day of admission, she developed an abrupt mental status change, characterized by confusion, disorganized speech, and talking about relatives, prompting ED evaluation. On arrival, the patient was hemodynamically stable and afebrile. Initial workup including CBC, CMP, lactic acid, troponin, urinalysis, TSH, and blood cultures was unremarkable. CT head showed no acute intracranial process. CT chest/abdomen/pelvis revealed incidental thyroid nodules, mild gallbladder wall thickening without signs of acute cholecystitis, and significant stool burden in the rectum with mild rectal wall thickening; no infection, obstruction, or acute intra-abdominal pathology was identified. Chest X-ray showed no evidence of pneumonia or pulmonary edema. Given the absence of infectious, metabolic, or structural causes, the patient?s presentation was felt to be most consistent with acute delirium, likely multifactorial in the setting of dehydration, constipation, and environmental change related to recent rehab placement. She was admitted to observation for monitoring and supportive care. Sedating medications were avoided. A bowel regimen was initiated. Over the hospital course, the patient demonstrated steady improvement in mental status, becoming alert to self, place, and year, with appropriate responses though slightly slowed. She tolerated oral intake well, ate meals without difficulty, and had no further agitation or safety concerns. She received a glycerin suppository for constipation prior to discharge. At the time of discharge, the patient was near her baseline mental status, hemodynamically stable, tolerating diet, and medically cleared to return to her care facility. Diagnosis During Admission: # Acute Encephalopathy # Delirium likely multifactorial # Constipation / Possible Proctitis, resolved # Hypertension # Thyroid Nodules # Advanced Arthritis with Kyphoscoliosis # Hyperlipidemia # Depression Discharge Instructions: -Follow-up with PCP within 1-2 weeks of discharge. -Recommended [id number] MIRALAX daily and increase water intake to prevent future episodes of constipation, maintain regular bowel movements, and prevent dehydrations which can lead to worsening mental status and constipation. -Continue taking medications as prescribed below. -Return to Emergency Room if symptoms persist, worsen, or new symptoms develop. ----- Plan discussed with attending physician Dr. Stacey Sutton MD PGY-1 Internal Medicine Time Spent with Patient Time attestation: Total time spent providing and/or coordinating discharge services: Time spent: Greater than 30 minutes Exam Vital Signs Temp Pulse Resp BP Pulse Ox O2 Del Method 97.3 F 67 20 126/71 96 Room Air 11/18/25 08:00 11/18/25 08:12 11/18/25 08:12 11/18/25 08:00 11/18/25 08:00 11/18/25 08:00 Narrative Exam General: Awake, calm, cooperative Neurologic: Alert, oriented ?3, slow but appropriate responses, no focal deficits Cardiac: Regular rate and rhythm Pulmonary: Clear to auscultation bilaterally Abdomen: Soft, non-tender, non-distended Extremities: No edema Discharge Plan Plan Patient Disposition: HOME (Self Care) Patient condition on transfer: Stable Care Plan Goals: * Follow-up with PCP within 1-2 weeks of discharge. * Recommended fzom-uxr-xjpryrn MIRALAX daily and increase water intake to prevent future episodes of constipation, maintain regular bowel movements, and prevent dehydrations which can lead to worsening mental status and constipation. * Continue taking medications as prescribed below. * Return to Emergency Room if symptoms persist, worsen, or new symptoms develop. Prescriptions/Referrals Prescriptions/Med Rec: New polyethylene glycol 3350 [Miralax] 17 gram/dose powder 4 g PO BID PRN (Reason: constipation) Qty: 238 0RF Continued amlodipine 5 mg tablet 5 mg PO QDAY Patient Comments: TAKE ONE TABLET BY MOUTH EVERY DAY FOR BLOOD PRESSURE furosemide 20 mg tablet 20 mg PO QDAY Patient Comments: TAKE ONE TABLET BY MOUTH EVERY MORNING A DIURETIC bupropion HCl 300 mg tablet extended release 24 hr 300 mg PO QDAY Patient Comments: TAKE ONE TABLET BY MOUTH EVERY MORNING benazepril 20 mg tablet 20 mg PO QDAY Patient Comments: TAKE ONE TABLET BY MOUTH EVERY DAY FOR BLOOD PRESSURE simvastatin 10 mg tablet 10 mg PO HS Patient Comments: TAKE ONE TABLET BY MOUTH AT BEDTIME FOR CHOLESTEROL ascorbic acid (vitamin C) [C-500] 500 mg tablet 500 mg PO BID omeprazole 20 mg capsule,delayed release(DR/EC) 20 mg PO QDAY acetaminophen 500 mg tablet 500 mg PO Q4H PRN (Reason: pain) Patient Comments: TAKE ONE TABLET BY MOUTH EVERY 6 HOURS NEEDED FOR PAIN multivitamin [Daily Multi-Vitamin] Tablet 1 tab PO QDAY bisacodyl [Dulcolax (bisacodyl)] 10 mg suppository 10 mg GA QDAY PRN (Reason: constipation) magnesium hydroxide 400 mg/5 mL suspension 30 ml PO QDAY PRN (Reason: constipation) Referrals: No Primary/Family,Physician [Primary Care Provider] Patient/Caregiver Discharge Instructions Print Language: Pashto Stand Alone Forms: [facility] Award Info., Patient Portal Info Letter Discharge Order Discharge Orders: Discharge (Routine); Ordered 11/18/25 Ordered By: Eliazar Rincon Quality Discharge Quality Measures VTE prophylaxis
[2025-11-18] MEDS: BuPROPion HCL XL 150 MG TABCR 300 MG PO (10:14)
[2025-11-18 10:15] VITALS: BP 126/71; PULSE 70
[2025-11-18] MEDS: SENNA/DOCUSATE SOD 1 TAB TABLET PO (10:15)
[2025-11-18 12:00] VITALS: BP 114/66; PULSE 57; RESP 17; TEMP 36.6; O2SAT 97
--- NOTE | 2025-11-18 12:30 | PC.RT ---
Transport initiated with [employer]. Reference #[id number]. Preferred vendor [place]. Awaiting authorization. Patient to return to [facility].
--- NOTE | 2025-11-18 12:42 | PC.SS ---
Updated clinicals submitted to [facility] via [facility].
--- NOTE | 2025-11-18 13:34 | PC.SS ---
Transport scheduled for 03:00 pm today [facility] notified SNF and bedside nurse. [facility] to transport.
[2025-11-18 13:57] VITALS: BMI 12.0
== END 2025-11-18 15:13 | disposition home or self-care (01) | DRG 71 ==
LOC: SERX 21:51 → SERHOLD 11-16 03:49 → S3SX 11-17 10:18 → SERHOLD 11-18 06:01
PROVIDERS: Nurse Practitioner Family; Admitting Provider Internal Medicine; Emergency Provider Emergency Medicine; Visit Provider Internal Medicine
DX: G93.40 Encephalopathy, unspecified (principal); F05 Delirium due to known physiological condition; I10 Essential (primary) hypertension; K59.00 Constipation, unspecified; M19.90 Unspecified osteoarthritis, unspecified site; M41.9 Scoliosis, unspecified; E04.2 Nontoxic multinodular goiter; E78.5 Hyperlipidemia, unspecified; F32.A Depression, unspecified; Z66 Do not resuscitate; Z79.899 Other long term (current) drug therapy
CPT/HCPCS: 36415; 51701; 70450; 71045; 71260; 74177; 80053; 80061; 81001; 83605; 83735; 84100; 84443; 84484; 85025; 85730; 92610; 96374; 96375; 97162; 99284; A4649; G0378; J2060; J7120; Q9967; A9270